=== PATIENT | female | born 1945 | race Hispanic/Latino ===

== ENCOUNTER 2016-12-02 15:35 | Inpatient (IN) | payer MEDICARE, OTHER ==
[2016-12-02] MEDS ORDERED: Digoxin 500 mcg/2ml (0.5 mg/2ml) Inj ONE ×2 (16:03→22:17)
[2016-12-02] MEDS ORDERED: Sodium Chloride 0.9% 1,000 ML IV ONE ×4 (16:10→21:33)
[2016-12-02] MEDS ORDERED: Digoxin 500 mcg/2ml (0.5 mg/2ml) Inj IVP ONE ×2 (16:12→21:26)
[2016-12-02] MEDS ORDERED: Sodium Chloride 0.9% 1,000 ML ONE (16:21)
[2016-12-02 16:44] LABS: VENOUS BLOOD GAS BASE EXCESS 5.4 mmol/L (0.0-2.0); VENOUS BLOOD GAS PCO2 42 mmHg (40-60); VENOUS BLOOD PH 7.46 (7.32-7.43)
[2016-12-02 16:55] LABS: LYMPH # 0.1 K/uL (1.0-4.3); MEAN CELL VOLUME 91.1 fL (81.0-99.0); MEAN CORPUSCULAR HEMOGLOBIN 31.1 pg (27.0-31.0); MEAN CORPUSCULAR HGB CONC 34.1 g/dL (33.0-37.0); NRBC % 3.2 % (0.0-2.0)
[2016-12-02 17:02] LABS: RBC URINE < 1 /hpf (0-3); TRANSITIONAL EPITHIAL < 1 /hpf (0-3); URINE BACTERIA RARE (<OCC); URINE BILIRUBIN NEGATIVE (NEGATIVE); URINE BLOOD NEGATIVE (NEGATIVE); URINE COLOR Amber (YELLOW); URINE GLUCOSE (UA) NORMAL (Normal); URINE KETONE TRACE mg/dL (NEGATIVE); URINE LEUKOCYTE ESTERASE NEG Leu/uL (Negative); URINE PROTEIN NEGATIVE (NEGATIVE); URINE UROBILINOGEN NORMAL mg/dL (0.2-1.0); WBC URINE 1 /hpf (0-5)
[2016-12-02 17:02] LABS: POTASSIUM 4.4 mmol/L (3.6-5.2)
[2016-12-02 17:04] LABS: ALB/GLOB RATIO 1.6 (1.0-2.1); BILIRUBIN,TOTAL 1.3 mg/dL (0.2-1.3); TOTAL PROTEIN 5.4 g/dL (6.3-8.3)
[2016-12-02 17:04] LABS: HEMATOCRIT 35.1 % (34.0-47.0)
[2016-12-02 17:05] LABS: CALCIUM 9.2 mg/dl (8.6-10.4)
[2016-12-02 17:05] LABS: BASO % 0.2 % (0.0-2.0); EOS % 0.3 % (0.0-4.0); LYMPH % 10.3 % (20.0-40.0); MEAN PLATELET VOLUME 7.2 fL (7.2-11.7); MONO % 1.7 % (0.0-10.0); PLATELET COUNT 126 K/uL (130-400); RED CELL DISTRIBUTION WIDTH 16.7 % (11.5-14.5)
[2016-12-02 17:06] LABS: INR 1.4
[2016-12-02 17:23] LABS: TROPONIN I 0.143 ng/mL (0.00-0.120)
--- NOTE | 2016-12-02 17:34 | CT ---
PROCEDURE: CT HEAD WITHOUT CONTRAST. HISTORY: MS change, h/o brain CA and surg, ? infect COMPARISON: None available. TECHNIQUE: Axial computed tomography images were obtained through the head/brain without intravenous contrast. Radiation dose: Total exam DLP = 982.82 mGy-cm. This CT exam was performed using one or more of the following dose reduction techniques: Automated exposure control, adjustment of the mA and/or kV according to patient size, and/or use of iterative reconstruction technique. FINDINGS: HEMORRHAGE: There is Iso to slightly hypointense small fluid collection along the left brain convexity with maximal thickness of 3.7 millimeter may represent old subdural hematoma or posttraumatic hygroma. No evidence of acute intracranial hemorrhage. BRAIN: No mass effect or edema. No atrophy or chronic microvascular ischemic changes. VENTRICLES: Unremarkable. No hydrocephalus. CALVARIUM: The patient status post left suboccipital craniectomy and cranioplasty. Focal mild soft tissue swelling seen adjacent and posterior to the left mastoid. PARANASAL SINUSES: Unremarkable as visualized. No significant inflammatory changes. MASTOID AIR CELLS: There is partial opacification of the left mastoid and left middle ear suggestive of otomastoiditis OTHER FINDINGS: None. IMPRESSION: Suspicious for small Iso to hypointense fluid collection along the left brain convexity with maximum thickness of 3.7 millimeter may represent old subdural hematoma or posttraumatic hygroma. No evidence of acute intracranial hemorrhage. Partial to complete opacification of the left mastoid and middle ear suggestive of otomastoiditis. Status post left suboccipital craniectomy. No evidence of mass lesion mass effect or midline shift in this study.
--- NOTE | 2016-12-02 17:42 | C.PDOC ---
History Of Present Illness 71 y/o female is brought to ED by family from home for evaluation of confusion and delirious x 2 days. Family @ bedside provide HPI. 09/23: Pt with dizziness, L eye vision changes, L hearing deficits and falls noticed 09/23 Tumor L brain stem area noted 11/11/16: L posterior Auricular approach by NSGY for removal of solitary brain lesion, metastatic breast CA, Onc Dr. Moore (sp?) @ [facility] pt had residual Left III, IV, nerve palsy for which pt is following up with Neurology since 02/23 (Unknown Neurologist) Discharged to [facility] staying approx 17 days and discharged yesterday (12/01/16) to go home to stay with her equally infirm who cannot take care of her. No SINGLE STAYER OPERATOR assiged to her home care. Black hairy tongue noticed 2 days ago. Has refused to stay with sons/daughters to care for her. She admits to poor PO intake and has been smoking cigarettes enthusiastically since yesterday. Left [facility] but had fevers to 101^F for past 2 day and prior to discharge, no ABX started. Code status d/w family @ bedside, oldest daughter is healthcare proxy, persists Full Code, no DNR in place Soon after arrival Pt was found to be in A-fib at the rate of 150-180 in the ER. HPI: 03/2013: b/l mastectomy for ? L breast CA and L chest radiation, complicated by L rib mets/fx. Has been relatively well until 03/26: Last Chemotherapy Mar 2016 on hold due to significant weight loss No h/o neutropenic fevers Time Seen by Provider: 12/02/16 16:08 Chief Complaint (Nursing): Altered Mental Status History Per: EMS, Family History/Exam Limitations: None Onset/Duration Of Symptoms: Hrs Current Symptoms Are (Timing): Still Present Recent travel outside of the [place]: No Additional History Per: Patient Associated Symptoms: Confused. denies: Vomiting, Diarrhea Past Medical History Reviewed: Historical Data, Nursing Documentation, Vital Signs Vital Signs: Last Vital Signs Temp 100 F H 12/02/16 21:33 Pulse 97 H 12/02/16 22:22 Resp 21 12/02/16 22:22 BP 97/46 L 12/02/16 22:22 Pulse Ox 95 12/03/16 01:22 Family History: States: Unknown Family Hx - Social History Hx Alcohol Use: No Hx Substance Use: No - Immunization History Hx Tetanus Toxoid Vaccination: No Hx Influenza Vaccination: No Hx Pneumococcal Vaccination: Yes Review Of Systems Except As Marked, All Systems Reviewed And Found Negative. Constitutional: Positive for: Other (persistent unintentional weight loss). Negative for: Fever, Chills Cardiovascular: Negative for: Chest Pain, Palpitations Respiratory: Negative for: Shortness of Breath Gastrointestinal: Negative for: Nausea, Vomiting, Abdominal Pain Neurological: Positive for: Confusion. Negative for: Dizziness Physical Exam - Physical Exam Appears: Non-toxic, No Acute Distress, Other (delirious, strong cigarette odor) Skin: Normal Color, Warm, Dry, No Rash, Other (L posterior auricaular area with healed surgical incision and remnants of absorbable sutures in the area, no surrounding erythema/d/c) Head: Atraumatic, Normacephalic Eye(s): bilateral: PERRL ((-)chelo shanel pupil), EOMI, left: Other (cannot look down from left eye) Oral Mucosa: Moist Tongue: Other (black hairy tongue) Neck: Normal ROM, Supple Chest: Symmetrical, No Tenderness Cardiovascular: Rhythm Regular, No Murmur Respiratory: Normal Breath Sounds, No Rales, No Rhonchi, No Wheezing Gastrointestinal/Abdominal: Soft, No Tenderness Extremity: Normal ROM, No Pedal Edema Extremity: Bilateral: Atraumatic Neurological/Psych: Oriented x3 ED Course And Treatment - Laboratory Results Result Diagrams: 12/02/16 17:00 12/02/16 16:40 Lab Interpretation: Abnormal (UA neg. trop 0.143) ECG: Interpreted By Wy ECG Rhythm: Sinus Rhythm ECG Interpretation: Abnormal Rate From EC (repeat EKG AF @ 181) O2 Sat by Pulse Oximetry: 95 (RA) Pulse Ox Interpretation: Normal - Radiology CXR: Interpreted by Wy CXR Interpretation: Yes: Other (? infiltrate vs radiation fibrosis L chest area) Progress Note: Blood work, UA, CXR, EKG, head CT ordered and reviewed. Patient was given Vancomycin, Tylenol, Lanoxin, Gentamicin, Ampicillin. Reevaluation Time: 21:32 Reassessment Condition: Improved - Physician Consult Information Outcome Of Conversation: d/w Dr. Jose Roberto SAAVEDRA Director [employer] @ 1930, recommends transfer back to care of Dr. Mercedez LORENZO @ [facility]. 1999: d/w Dr. Urena - Pt's Oncology @ [place], ok to accept in Transfer. 1999--> multipole calls to transfer pt to [facility] without success. d/w Noman- in Admitting/ Bed Control. pt information to be presented to Utilization Review Associate Professor Of Literacy approx 9AM 12/03 and will be evaluated for accept of transfer at that time. 0100: d/w Dr. Sanchez- covering ICU, ok to ICU Critical Care Time - Critical Care Note Total Time (in mins): 120 Documented critical care: time excludes all time spent performing seperately billable procedures. Medical Decision Making Medical Decision Making: Metastatic L breast CA with L brain lesion now s/p NSGY 11/11/16 with residual L eye CN III, IV, palsy Neutropenic Fevers and new Rapid AF with WBC 1.0, N 87%, empirically covered with Amp, Gent, Vanco, no obvious source at this time, but high suspicion of post-surgical NSGY wound may harbor infection considering pt's diminishing Neuro Status. Curious why pt neutropenic if no Chemotherapy since 03/26? Consider Meningitis- recent NSGY and small fluid collection @ L inferior brain surgery site. May explain some of pt's declining mental status. empiric coverage started. LP deferred for pt with no meningsmus, nuchal rigitidy, nor photophobia New onset AF- dig Loaded 0.5 mg IV, and 2nd dose dig 0.25 given @ 2200 hrs. continue to load 3rd dose 0.25 overnight and then maintenence doses daily. Check levels as appropriate NSTEMI- Trop 0.143, prob related to OSBALDO and strain, normal EKG on arrival and OSBALDO @ 181 in ED. Could be related to PE though CTA cannot be performed due to acute renal insuff creat 2.23. Defer anticoagulation due to recent neurosurgery 11/11/16 approx 3 weeks ago where risks of brain bleed outweigh low susp of PE in this pt with initially NSR 80's and no leg edema/swelling. pt received radiation to L chest area breast and/or L rib area, consider radiation related cardiomyopathies. Dehydration- creat 2.2, was normal during admission this month @ [facility]. Pt eating poorly and not drinking fluids but no dysphagia/odynophagia. Agressive hydration started. Hairy Black Tongue - still smoking, poorly kempt, asymptomatic. Consider hygiene. Code Status: Full Code, oldest daughter (not present today) is Healthcare Proxy. Extensive d/w family @ bedside to continue present care and consider DNR status and Hospice care considering advanced diseases and potentially poor prognosis Disposition Doctor Will See Patient In The: Hospital Counseled Patient/Family Regarding: Studies Performed, Diagnosis - Disposition Disposition: HOSPITALIZED Disposition Time: 01:00 Condition: GOOD Forms: uMentioned (Amharic) - Clinical Impression Clinical Impression: Dehydration, Acute renal insufficiency, NSTEMI (non-ST elevated myocardial infarction), Rapid atrial fibrillation, Brain surgery within last 3 months, Breast cancer metastasized to bone - Scribe Statement The provider has reviewed the documentation as recorded by the Scribjaime Frederick All medical record entries made by the Kathiibjaime were at my direction and personally dictated by me. I have reviewed the chart and agree that the record accurately reflects my personal performance of the history, physical exam, medical decision making, and the department course for this patient. I have also personally directed, reviewed, and agree with the discharge instructions and disposition.
[2016-12-02] MEDS ORDERED: Vancomycin 1 GM 1 GM/250 ML BAG IV ONE (17:45)
[2016-12-02] MEDS ORDERED: AMPicillin 1 GM in Sodium Chloride 0.9% 100 ML IVPB STA (17:48)
[2016-12-02 17:51] LABS: METAMYELOCYTE 1 % (0-0); MYELOCYTE 1 % (0-0); NEUTROPHIL 54 % (50-75); NUCLEATED RED BLOOD CELL 6 % (0-0); TOTAL CELLS COUNTED 100
--- NOTE | 2016-12-02 18:06 | RAD ---
HISTORY: adm COMPARISON: None available. TECHNIQUE: Chest, one view. FINDINGS: Right-sided MediPort extends to the expected location of the SVC. LUNGS: Patchy bilateral airspace opacities with the left mid to lower lobe predominance. Please note that chest x-ray has limited sensitivity for the detection of pulmonary masses. PLEURA: No significant pleural effusion identified. No definite pneumothorax . CARDIOVASCULAR: Heart size appears top normal. Atherosclerotic calcifications the aorta. OSSEOUS STRUCTURES: Osseous demineralization. Degenerative changes. VISUALIZED UPPER ABDOMEN: Mild elevation of the right hemidiaphragm. OTHER FINDINGS: None. IMPRESSION: Right-sided MediPort. Patchy bilateral airspace opacities with left mid to lower lobe predominance. Correlate clinically for infectious etiologies. Recommend follow-up to complete resolution.
[2016-12-02] MEDS ORDERED: Sodium Chloride 0.9% 1,000 ML IV STA (18:58)
[2016-12-02] MEDS ORDERED: Vancomycin 1 gm/NS 200 ml 1 GM/200 ML BAG IVPB ONE (20:00)
[2016-12-02 22:22] VITALS: PULSE 105
--- NOTE | 2016-12-03 02:02 | CP.PCM.HP ---
<Dory Schreiber - Last Filed: 12/03/16 03:37> History of Present Illness - History of Present Illness History of Present Illness: HPI: 71 year old female with PMHx of metastatic breast cancer, COPD, and s/p neurosurgery to remove brain tumor, presents to the ED with altered mental status as per H&P provided by ER physician. Upon examination, patient's only complain is lower back pain due to laying down all day. Patient was unaware why she was brought to the ED. When asked, patient stated she had shortness of breath but states she has COPD and this is not new. Patient denies chest pain, nausea, or vomiting. A complete review of systems could not be completed due to patients change in mental status. 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 Other information unobtainable. Present on Admission - Present on Admission Any Indicators Present on Admission: No Review of Systems - Review of Systems Systems not reviewed;Unavailable: Altered Mental Status - Cardiovascular Cardiovascular: absent: Chest Pain - Gastrointestinal Gastrointestinal: absent: Nausea, Vomiting Past Patient History - Past Social History Smoking Status: Former Smoker - NEUROLOGICAL Other/Comment: brain tumor - HEMATOLOGICAL/ONCOLOGICAL Hx Cancer: Yes (breast) - PSYCHIATRIC Hx Substance Use: No - SURGICAL HISTORY Other/Comment: brain surgery Meds Allergies/Adverse Reactions: Allergies Allergy/AdvReac Type Severity Reaction Status Date / Time No Known Allergies Allergy Verified 12/02/16 15:40 Physical Exam - Constitutional Appears: Cachectic, Chronically Ill - Head Exam Head Exam: ATRAUMATIC, NORMAL INSPECTION, NORMOCEPHALIC - Eye Exam Additional comments: Patient did not have left lateral and left superior movement of the left eye - ENT Exam ENT Exam: Mucous Membranes Dry - Respiratory Exam Respiratory Exam: Clear to Auscultation Bilateral, NORMAL BREATHING PATTERN - Cardiovascular Exam Cardiovascular Exam: REGULAR RHYTHM, +S1, +S2. absent: JVD - GI/Abdominal Exam GI & Abdominal Exam: Normal Bowel Sounds, Soft. absent: Tenderness - Extremities Exam Extremities exam: Positive for: normal inspection. Negative for: pedal edema, tenderness - Neurological Exam Neurological exam: Alert Additional comments: Patient stated she knew she was in the hospital but when asked where she came from she said she came from home with her . - Psychiatric Exam Psychiatric exam: Normal Affect, Normal Mood - Skin Skin Exam: Normal Color, Warm Results - Vital Signs Recent Vital Signs: Last Vital Signs Temp 100 F H 12/02/16 21:33 Pulse 97 H 12/02/16 22:22 Resp 21 12/02/16 22:22 BP 97/46 L 12/02/16 22:22 Pulse Ox 95 12/03/16 01:59 - Labs Result Diagrams: 12/02/16 17:00 12/02/16 16:40 Labs: Laboratory Results - last 24 hr 12/02/16 12/02/16 12/02/16 15:39 16:08 16:15 WBC RBC Hgb Hct MCV MCH MCHC RDW Plt Count MPV Neut % (Auto) Lymph % (Auto) [place] % (Auto) Eos % (Auto) Baso % (Auto) Neut # Lymph # [place] # Eos # Baso # Neutrophils % (Manual) Band Neutrophils % Lymphocytes % (Manual) Monocytes % (Manual) Metamyelocytes % Myelocytes % Nucleated RBC % Toxic Granulation Dohle Bodies Platelet Estimate Anisocytosis (manual) PT INR APTT pO2 VBG pH VBG pCO2 VBG HCO3 VBG Total CO2 VBG Base Excess VBG Potassium Sodium Chloride Glucose Lactate Potassium Carbon Dioxide Anion Gap BUN Creatinine Est GFR ( Amer) Est GFR (Non-Af Amer) POC Glucose (mg/dL) 80 Random Glucose Hemoglobin A1c 6.8 H Calcium Total Bilirubin AST ALT Alkaline Phosphatase Troponin I Total Protein Albumin Globulin Albumin/Globulin Ratio Triglycerides Cholesterol LDL Cholesterol Direct HDL Cholesterol Venous Blood Potassium Urine Color Urine Clarity Urine pH Ur Specific [place] Urine Protein Urine Glucose (UA) Urine Ketones Urine Blood Urine Nitrate Urine Bilirubin Urine Urobilinogen Ur Leukocyte Esterase Urine WBC (Auto) Urine RBC (Auto) Ur Transition Epith Cell Urine Bacteria Hyaline Casts Blood Type B POSITIVE Antibody Screen Positive Antibody Identification Anti Jka 12/02/16 12/02/16 12/02/16 16:40 16:40 16:50 WBC RBC Hgb Hct MCV MCH MCHC RDW Plt Count MPV Neut % (Auto) Lymph % (Auto) [place] % (Auto) Eos % (Auto) Baso % (Auto) Neut # Lymph # [place] # Eos # Baso # Neutrophils % (Manual) Band Neutrophils % Lymphocytes % (Manual) Monocytes % (Manual) Metamyelocytes % Myelocytes % Nucleated RBC % Toxic Granulation Dohle Bodies Platelet Estimate Anisocytosis (manual) PT INR APTT pO2 35 VBG pH 7.46 H VBG pCO2 42 VBG HCO3 28.4 VBG Total CO2 31.2 H VBG Base Excess 5.4 H VBG Potassium 5.1 Sodium 130 L 135.0 Chloride 87 L 90.0 L Glucose 77 Lactate 1.9 Potassium 4.4 Carbon Dioxide 28 Anion Gap 19 BUN 73 H Creatinine 2.3 H Est GFR ( Amer) 25 Est GFR (Non-Af Amer) 21 POC Glucose (mg/dL) Random Glucose 67 Hemoglobin A1c Calcium 9.2 Total Bilirubin 1.3 AST 18 ALT 27 Alkaline Phosphatase 95 Troponin I 0.1430 H* Total Protein 5.4 L Albumin 3.3 L Globulin 2.1 L Albumin/Globulin Ratio 1.6 Triglycerides 188 H Cholesterol 152 LDL Cholesterol Direct 61 HDL Cholesterol 30 Venous Blood Potassium 5.1 Urine Color Erin Urine Clarity Hazy Urine pH 5.0 Ur Specific [place] 1.019 Urine Protein Negative Urine Glucose (UA) Normal Urine Ketones Trace Urine Blood Negative Urine Nitrate Negative Urine Bilirubin Negative Urine Urobilinogen Normal Ur Leukocyte Esterase Neg Urine WBC (Auto) 1 Urine RBC (Auto) < 1 Ur Transition Epith Cell < 1 Urine Bacteria Rare Hyaline Casts 3-5 H Blood Type Antibody Screen Antibody Identification 12/02/16 12/02/16 17:00 17:00 WBC 1.0 L* RBC 3.86 Hgb 12.0 Hct 35.1 MCV 91.1 MCH 31.1 H MCHC 34.1 RDW 16.7 H Plt Count 126 L MPV 7.2 Neut % (Auto) 87.5 H Lymph % (Auto) 10.3 L [place] % (Auto) 1.7 Eos % (Auto) 0.3 Baso % (Auto) 0.2 Neut # 0.9 L Lymph # 0.1 L [place] # 0.0 Eos # 0.0 Baso # 0.0 Neutrophils % (Manual) 54 Band Neutrophils % 28 H* Lymphocytes % (Manual) 9 L Monocytes % (Manual) 7 Metamyelocytes % 1 H Myelocytes % 1 H Nucleated RBC % 6 H Toxic Granulation Present Dohle Bodies Present Platelet Estimate Slightly decreased L Anisocytosis (manual) Slight PT 15.8 H INR 1.4 APTT 48 H pO2 VBG pH VBG pCO2 VBG HCO3 VBG Total CO2 VBG Base Excess VBG Potassium Sodium Chloride Glucose Lactate Potassium Carbon Dioxide Anion Gap BUN Creatinine Est GFR ( Amer) Est GFR (Non-Af Amer) POC Glucose (mg/dL) Random Glucose Hemoglobin A1c Calcium Total Bilirubin AST ALT Alkaline Phosphatase Troponin I Total Protein Albumin Globulin Albumin/Globulin Ratio Triglycerides Cholesterol LDL Cholesterol Direct HDL Cholesterol Venous Blood Potassium Urine Color Urine Clarity Urine pH Ur Specific [place] Urine Protein Urine Glucose (UA) Urine Ketones Urine Blood Urine Nitrate Urine Bilirubin Urine Urobilinogen Ur Leukocyte Esterase Urine WBC (Auto) Urine RBC (Auto) Ur Transition Epith Cell Urine Bacteria Hyaline Casts Blood Type Antibody Screen Antibody Identification Assessment & Plan - Assessment and Plan (Free Text) Assessment: 1.) Change in mental status possibly secondary to Neutropenic fever - WBC on admission (12/02): 1.0 - Meropenem [id number], - vanco dose dependent on levels - Monitor - Head CT: Suspicious for small Iso to hypointense fluid collection along the left brain convexity with maximum thickness of 3.7 millimeter may represent old subdural hematoma or posttraumatic hygroma. No evidence of acute intracranial hemorrhage. Partial to complete opacification of the left mastoid and middle ear suggestive of otomastoiditis. Status post left suboccipital craniectomy. No evidence of mass lesion mass effect or midline shift in this study. 2.) Clinical dehydration - n/s was given in the ED 3.) TERESA - BUN/Cr: 73/2.3 4.) Tachycardia likely sinus with pac with hr in 180's - f/u ECHO - f/u venous doppler 5.) History of Brain Tumor: - Head CT: Suspicious for small Iso to hypointense fluid collection along the left brain convexity with maximum thickness of 3.7 millimeter may represent old subdural hematoma or posttraumatic hygroma. No evidence of acute intracranial hemorrhage. Partial to complete opacification of the left mastoid and middle ear suggestive of otomastoiditis. Status post left suboccipital craniectomy. No evidence of mass lesion mass effect or midline shift in this study. - Continue home dose of decadron 5.) Prophylaxis - Heparin SC - Protonix - Disposition: Possible transfer to [facility] in morning <Cuauhtemoc Colin - Last Filed: 12/03/16 04:24> Results - Vital Signs Recent Vital Signs: Last Vital Signs Temp 101.2 F H 12/03/16 04:15 Pulse 139 H 12/03/16 04:10 Resp 22 12/03/16 04:10 BP 105/38 L 12/03/16 03:53 Pulse Ox 96 12/03/16 04:10 - Labs Result Diagrams: 12/02/16 17:00 12/02/16 16:40 Labs: Laboratory Results - last 24 hr 12/02/16 12/02/16 12/02/16 15:39 16:08 16:15 WBC RBC Hgb Hct MCV MCH MCHC RDW Plt Count MPV Neut % (Auto) Lymph % (Auto) [place] % (Auto) Eos % (Auto) Baso % (Auto) Neut # Lymph # [place] # Eos # Baso # Neutrophils % (Manual) Band Neutrophils % Lymphocytes % (Manual) Monocytes % (Manual) Metamyelocytes % Myelocytes % Nucleated RBC % Toxic Granulation Dohle Bodies Platelet Estimate Anisocytosis (manual) PT INR APTT pO2 VBG pH VBG pCO2 VBG HCO3 VBG Total CO2 VBG Base Excess VBG Potassium Sodium Chloride Glucose Lactate Potassium Carbon Dioxide Anion Gap BUN Creatinine Est GFR ( Amer) Est GFR (Non-Af Amer) POC Glucose (mg/dL) 80 Random Glucose Hemoglobin A1c 6.8 H Calcium Total Bilirubin AST ALT Alkaline Phosphatase Troponin I Total Protein Albumin Globulin Albumin/Globulin Ratio Triglycerides Cholesterol LDL Cholesterol Direct HDL Cholesterol Venous Blood Potassium Urine Color Urine Clarity Urine pH Ur Specific [place] Urine Protein Urine Glucose (UA) Urine Ketones Urine Blood Urine Nitrate Urine Bilirubin Urine Urobilinogen Ur Leukocyte Esterase Urine WBC (Auto) Urine RBC (Auto) Ur Transition Epith Cell Urine Bacteria Hyaline Casts Blood Type B POSITIVE Antibody Screen Positive Antibody Identification Anti Jka 12/02/16 12/02/16 12/02/16 16:40 16:40 16:50 WBC RBC Hgb Hct MCV MCH MCHC RDW Plt Count MPV Neut % (Auto) Lymph % (Auto) [place] % (Auto) Eos % (Auto) Baso % (Auto) Neut # Lymph # [place] # Eos # Baso # Neutrophils % (Manual) Band Neutrophils % Lymphocytes % (Manual) Monocytes % (Manual) Metamyelocytes % Myelocytes % Nucleated RBC % Toxic Granulation Dohle Bodies Platelet Estimate Anisocytosis (manual) PT INR APTT pO2 35 VBG pH 7.46 H VBG pCO2 42 VBG HCO3 28.4 VBG Total CO2 31.2 H VBG Base Excess 5.4 H VBG Potassium 5.1 Sodium 130 L 135.0 Chloride 87 L 90.0 L Glucose 77 Lactate 1.9 Potassium 4.4 Carbon Dioxide 28 Anion Gap 19 BUN 73 H Creatinine 2.3 H Est GFR ( Amer) 25 Est GFR (Non-Af Amer) 21 POC Glucose (mg/dL) Random Glucose 67 Hemoglobin A1c Calcium 9.2 Total Bilirubin 1.3 AST 18 ALT 27 Alkaline Phosphatase 95 Troponin I 0.1430 H* Total Protein 5.4 L Albumin 3.3 L Globulin 2.1 L Albumin/Globulin Ratio 1.6 Triglycerides 188 H Cholesterol 152 LDL Cholesterol Direct 61 HDL Cholesterol 30 Venous Blood Potassium 5.1 Urine Color Erin Urine Clarity Hazy Urine pH 5.0 Ur Specific [place] 1.019 Urine Protein Negative Urine Glucose (UA) Normal Urine Ketones Trace Urine Blood Negative Urine Nitrate Negative Urine Bilirubin Negative Urine Urobilinogen Normal Ur Leukocyte Esterase Neg Urine WBC (Auto) 1 Urine RBC (Auto) < 1 Ur Transition Epith Cell < 1 Urine Bacteria Rare Hyaline Casts 3-5 H Blood Type Antibody Screen Antibody Identification 12/02/16 12/02/16 17:00 17:00 WBC 1.0 L* RBC 3.86 Hgb 12.0 Hct 35.1 MCV 91.1 MCH 31.1 H MCHC 34.1 RDW 16.7 H Plt Count 126 L MPV 7.2 Neut % (Auto) 87.5 H Lymph % (Auto) 10.3 L [place] % (Auto) 1.7 Eos % (Auto) 0.3 Baso % (Auto) 0.2 Neut # 0.9 L Lymph # 0.1 L [place] # 0.0 Eos # 0.0 Baso # 0.0 Neutrophils % (Manual) 54 Band Neutrophils % 28 H* Lymphocytes % (Manual) 9 L Monocytes % (Manual) 7 Metamyelocytes % 1 H Myelocytes % 1 H Nucleated RBC % 6 H Toxic Granulation Present Dohle Bodies Present Platelet Estimate Slightly decreased L Anisocytosis (manual) Slight PT 15.8 H INR 1.4 APTT 48 H pO2 VBG pH VBG pCO2 VBG HCO3 VBG Total CO2 VBG Base Excess VBG Potassium Sodium Chloride Glucose Lactate Potassium Carbon Dioxide Anion Gap BUN Creatinine Est GFR ( Amer) Est GFR (Non-Af Amer) POC Glucose (mg/dL) Random Glucose Hemoglobin A1c Calcium Total Bilirubin AST ALT Alkaline Phosphatase Troponin I Total Protein Albumin Globulin Albumin/Globulin Ratio Triglycerides Cholesterol LDL Cholesterol Direct HDL Cholesterol Venous Blood Potassium Urine Color Urine Clarity Urine pH Ur Specific [place] Urine Protein Urine Glucose (UA) Urine Ketones Urine Blood Urine Nitrate Urine Bilirubin Urine Urobilinogen Ur Leukocyte Esterase Urine WBC (Auto) Urine RBC (Auto) Ur Transition Epith Cell Urine Bacteria Hyaline Casts Blood Type Antibody Screen Antibody Identification Assessment & Plan - Date & Time Date: 12/03/16 (I have seen and examined the patient. I agree with the findings and plan of care as documented by Dr. Schreiber. Patient with acute change in mental status. CT positive for hypo dense fluid collection. History of brain tumor. Neutropenic fever. Antibiotics started in ED. Reverse isolation. Also with acute kidney injury. IVF for now. Recheck with labs in AM. Admit to ICU for close monitoring. Monitor for acute changes.) Time: 04:22 Attending/Attestation - Attestation I have personally seen and examined this patient.: Yes I have fully participated in the care of the patient.: Yes I have reviewed all pertinent clinical information: Yes
--- NOTE | 2016-12-03 02:52 | CP.PCM.CON ---
History of Present Illness - History of Present Illness History of Present Illness: 71 F with h/o breast cancer s/p surg b/l mastectomy in 2013, h/o uterine cancer s/p hysterectomy, h/o recurrence of breast cancer with mets to head with and surgical removal of tumor in the base of the skull on the left side with affection of LR and SO nerve supply early this November, patient's Neurosugeon Dr. Panchal in [facility] and Oncologist Dr Urena in [facility]. Patient was in rehab untill 2 days back but then discharged home and had fever for 2 days. Patient in ER found to be neutropenic, high fever, absolute neutropenia of 900, creat 2.3, HR in 180's with PAC vs afib, hypotension. Patient in ER given gentamycin, vancomycin, ampicillin, CT brain in ER showed small amount of fluid on the left side. Patient needed about 4 lit of fluid in ER, dig was also given. From ER request was made to transfer patient to [facility] but could not be transferred in the night due to administrative issue at [facility], patient was hence being observed in here in ICU. PMH as above ROS patient has poor intake, currently alert and oriented, uses walker, not eating well due to nausea Review of Systems - Review of Systems All systems: reviewed and no additional remarkable complaints except (HPI) Past Patient History - Past Social History Smoking Status: Former Smoker Alcohol: None Drugs: Denies Home Situation {Lives}: With Family - NEUROLOGICAL Other/Comment: brain tumor - HEMATOLOGICAL/ONCOLOGICAL Hx Cancer: Yes (breast) - PSYCHIATRIC Hx Substance Use: No - SURGICAL HISTORY Other/Comment: brain surgery Meds Allergies/Adverse Reactions: Allergies Allergy/AdvReac Type Severity Reaction Status Date / Time No Known Allergies Allergy Verified 12/02/16 15:40 - Medications Medications: Current Medications Dexamethasone (Decadron) 2 mg PO Q12 SEVERINO Diltiazem HCl (Cardizem) 180 mg PO ONCE SEVERINO Gabapentin (Neurontin) 300 mg PO TID SEVERINO Heparin Sodium (Porcine) (Heparin) 5,000 units SC Q8 SEVERINO Pantoprazole Sodium (Protonix Inj) 40 mg IVP DAILY SEVERINO Fluticasone/Salmeterol (Advair Diskus 250/50) 1 puff INH RQ12 SEVERINO Physical Exam - Additional Findings Additional findings: * HEENT, no left lateral and left superior movement of the left eye, oral mucosa very dry, scar noticed behind left ear * Neck no jvd * chest Clear * CVS regular now, narrow complex not * PA soft, reduced bs, NT * Ext no edema, reduced turgor * CHS essential tremors, alert oriented x3, moving all 4 ext, no gross sensory defict * Skin dry Results - Vital Signs Recent Vital Signs: Last Vital Signs Temp 100 F H 12/02/16 21:33 Pulse 97 H 12/02/16 22:22 Resp 21 12/02/16 22:22 BP 97/46 L 12/02/16 22:22 Pulse Ox 95 12/03/16 02:03 - Labs Result Diagrams: 12/02/16 17:00 12/02/16 16:40 Labs: Laboratory Results - last 24 hr 12/02/16 12/02/16 12/02/16 15:39 16:08 16:15 WBC RBC Hgb Hct MCV MCH MCHC RDW Plt Count MPV Neut % (Auto) Lymph % (Auto) [place] % (Auto) Eos % (Auto) Baso % (Auto) Neut # Lymph # [place] # Eos # Baso # Neutrophils % (Manual) Band Neutrophils % Lymphocytes % (Manual) Monocytes % (Manual) Metamyelocytes % Myelocytes % Nucleated RBC % Toxic Granulation Dohle Bodies Platelet Estimate Anisocytosis (manual) PT INR APTT pO2 VBG pH VBG pCO2 VBG HCO3 VBG Total CO2 VBG Base Excess VBG Potassium Sodium Chloride Glucose Lactate Potassium Carbon Dioxide Anion Gap BUN Creatinine Est GFR ( Amer) Est GFR (Non-Af Amer) POC Glucose (mg/dL) 80 Random Glucose Hemoglobin A1c 6.8 H Calcium Total Bilirubin AST ALT Alkaline Phosphatase Troponin I Total Protein Albumin Globulin Albumin/Globulin Ratio Triglycerides Cholesterol LDL Cholesterol Direct HDL Cholesterol Venous Blood Potassium Urine Color Urine Clarity Urine pH Ur Specific [place] Urine Protein Urine Glucose (UA) Urine Ketones Urine Blood Urine Nitrate Urine Bilirubin Urine Urobilinogen Ur Leukocyte Esterase Urine WBC (Auto) Urine RBC (Auto) Ur Transition Epith Cell Urine Bacteria Hyaline Casts Blood Type B POSITIVE Antibody Screen Positive Antibody Identification Anti Jka 12/02/16 12/02/16 12/02/16 16:40 16:40 16:50 WBC RBC Hgb Hct MCV MCH MCHC RDW Plt Count MPV Neut % (Auto) Lymph % (Auto) [place] % (Auto) Eos % (Auto) Baso % (Auto) Neut # Lymph # [place] # Eos # Baso # Neutrophils % (Manual) Band Neutrophils % Lymphocytes % (Manual) Monocytes % (Manual) Metamyelocytes % Myelocytes % Nucleated RBC % Toxic Granulation Dohle Bodies Platelet Estimate Anisocytosis (manual) PT INR APTT pO2 35 VBG pH 7.46 H VBG pCO2 42 VBG HCO3 28.4 VBG Total CO2 31.2 H VBG Base Excess 5.4 H VBG Potassium 5.1 Sodium 130 L 135.0 Chloride 87 L 90.0 L Glucose 77 Lactate 1.9 Potassium 4.4 Carbon Dioxide 28 Anion Gap 19 BUN 73 H Creatinine 2.3 H Est GFR ( Amer) 25 Est GFR (Non-Af Amer) 21 POC Glucose (mg/dL) Random Glucose 67 Hemoglobin A1c Calcium 9.2 Total Bilirubin 1.3 AST 18 ALT 27 Alkaline Phosphatase 95 Troponin I 0.1430 H* Total Protein 5.4 L Albumin 3.3 L Globulin 2.1 L Albumin/Globulin Ratio 1.6 Triglycerides 188 H Cholesterol 152 LDL Cholesterol Direct 61 HDL Cholesterol 30 Venous Blood Potassium 5.1 Urine Color Erin Urine Clarity Hazy Urine pH 5.0 Ur Specific [place] 1.019 Urine Protein Negative Urine Glucose (UA) Normal Urine Ketones Trace Urine Blood Negative Urine Nitrate Negative Urine Bilirubin Negative Urine Urobilinogen Normal Ur Leukocyte Esterase Neg Urine WBC (Auto) 1 Urine RBC (Auto) < 1 Ur Transition Epith Cell < 1 Urine Bacteria Rare Hyaline Casts 3-5 H Blood Type Antibody Screen Antibody Identification 12/02/16 12/02/16 17:00 17:00 WBC 1.0 L* RBC 3.86 Hgb 12.0 Hct 35.1 MCV 91.1 MCH 31.1 H MCHC 34.1 RDW 16.7 H Plt Count 126 L MPV 7.2 Neut % (Auto) 87.5 H Lymph % (Auto) 10.3 L [place] % (Auto) 1.7 Eos % (Auto) 0.3 Baso % (Auto) 0.2 Neut # 0.9 L Lymph # 0.1 L [place] # 0.0 Eos # 0.0 Baso # 0.0 Neutrophils % (Manual) 54 Band Neutrophils % 28 H* Lymphocytes % (Manual) 9 L Monocytes % (Manual) 7 Metamyelocytes % 1 H Myelocytes % 1 H Nucleated RBC % 6 H Toxic Granulation Present Dohle Bodies Present Platelet Estimate Slightly decreased L Anisocytosis (manual) Slight PT 15.8 H INR 1.4 APTT 48 H pO2 VBG pH VBG pCO2 VBG HCO3 VBG Total CO2 VBG Base Excess VBG Potassium Sodium Chloride Glucose Lactate Potassium Carbon Dioxide Anion Gap BUN Creatinine Est GFR ( Amer) Est GFR (Non-Af Amer) POC Glucose (mg/dL) Random Glucose Hemoglobin A1c Calcium Total Bilirubin AST ALT Alkaline Phosphatase Troponin I Total Protein Albumin Globulin Albumin/Globulin Ratio Triglycerides Cholesterol LDL Cholesterol Direct HDL Cholesterol Venous Blood Potassium Urine Color Urine Clarity Urine pH Ur Specific [place] Urine Protein Urine Glucose (UA) Urine Ketones Urine Blood Urine Nitrate Urine Bilirubin Urine Urobilinogen Ur Leukocyte Esterase Urine WBC (Auto) Urine RBC (Auto) Ur Transition Epith Cell Urine Bacteria Hyaline Casts Blood Type Antibody Screen Antibody Identification Assessment & Plan - Assessment and Plan (Free Text) Assessment: * Neutropenic fever * Clinical dehydration * TERESA * Tachycardia likely sinus with pac with hr in 180's * Port in right side * recent left side brain surg, with affection of LR and SO, with slight fluid Plan: * Electrolytes * IVF * Meropenem [id number], vanco dose dependent on levels * Continue home dose of decadron, home meds * Chest, abd, pelvis CT * Echo, venous doppler * GI/DVT prophylaxis * Possible transfer to [facility] in am, where patient has neurologist Dr Panchal and Dr Urena have privileges * See orders for detail
[2016-12-03] MEDS ORDERED: Meropenem 500 MG in Dextrose 5% In Water 100 ML IVPB SCH (03:00)
[2016-12-03 05:43] LABS: MAGNESIUM 1.7 mg/dL (1.6-2.3); POTASSIUM 3.7 mmol/L (3.6-5.2)
[2016-12-03 05:44] LABS: ALB/GLOB RATIO 0.9 (1.0-2.1); BILIRUBIN,TOTAL 0.7 mg/dL (0.2-1.3); TOTAL PROTEIN 5.3 g/dL (6.3-8.3)
[2016-12-03 06:30] LABS: PHOSPHOROUS 4.8 mg/dL (2.5-4.5)
[2016-12-03 06:33] LABS: BASO % 0.1 % (0.0-2.0); EOS % 0.6 % (0.0-4.0); HEMATOCRIT 29.8 % (34.0-47.0); LYMPH % 6.4 % (20.0-40.0); MEAN CORPUSCULAR HEMOGLOBIN 30.7 pg (27.0-31.0); MEAN CORPUSCULAR HGB CONC 32.6 g/dL (33.0-37.0); MEAN PLATELET VOLUME 6.9 fL (7.2-11.7); MONO % 0.8 % (0.0-10.0); WHITE BLOOD COUNT 0.5 K/uL (4.8-10.8)
[2016-12-03 06:53] VITALS: BP 101/46; PULSE 137; RESP 26; O2SAT 96
[2016-12-03] MEDS ORDERED: Vancomycin 1 gm/NS 200 ml 1 GM/200 ML BAG IVPB SCH (08:00)
[2016-12-03] MEDS ORDERED: Fluticasone-Salmeterol 250-50mcg Diskus INH SCH (08:00)
[2016-12-03] MEDS ORDERED: Sodium Chloride 0.9% 500 ML IV ONE (09:01)
[2016-12-03] MEDS ORDERED: Sodium Chloride 0.9% 1,000 ML IV SCH (09:15)
[2016-12-03] MEDS ORDERED: diltiaZEM 180 mg/24 Hours CD Cap PO SCH (10:00)
[2016-12-03] MEDS ORDERED: Dextrose 5%/0.9% NS 1,000 ML IV ONE (12:13)
[2016-12-03] MEDS ORDERED: Dexmedetomidine Hydrochloride 200 MCG in Sodium Chloride 0.9% 48 ML IV PRN (14:57)
--- NOTE | 2016-12-03 15:19 | CP.CCUPN ---
<Alessandra Alvarez - Last Filed: 12/03/16 15:16> CCU Subjective - Physician Review Subjective (Free Text): Patient seen and examined at bedside. Patient slightly confused. Patient knows she is in a hospital and the vice president quality. Patient says the year it is incorrectly. Full ROS unobtainable. Patient was going to be transferred to [facility] where her oncologist works today, but family decided to make patient DNR, DNI. Everyone in the family is in agreement. CCU Objective - Vital Signs / Intake & Output Vital Signs (Last 4 hours): Vital Signs Temp 12/03/16 12:47 100.6 F H Intake and Output (Last 8hrs): Intake & Output 12/03/16 12/03/16 12/03/16 06:59 14:59 22:59 Intake Total 100 Output Total 75 Balance 25 Weight 112 lb 3.445 oz Intake: Intake, IV Amount 100 Right Distal Port Port-A- 100 Cath Output: Urine 75 Urethral (Dickson) 75 Other: Voiding Method Indwelling Catheter - Physical Exam Head: Positive for: Atraumatic, Normocephalic Mouth: Positive for: Dry Respiratory/Chest: Positive for: Accessory Muscle Use, Decreased Breath Sounds Cardiovascular: Positive for: Normal S1, S2, Tachycardic Abdomen: Positive for: Normal Bowel Sounds. Negative for: Tenderness Lower Extremity: Negative for: Edema Skin: Positive for: Warm, Normal Color Psychiatric: Positive for: Alert. Negative for: Oriented x 3 - Medications Active Medications: Active Medications Generic Name Dose Route Start Last Admin Trade Name Freq PRN Reason Stop Dose Admin Acetaminophen 650 mg 12/03/16 11:53 12/03/16 12:47 Tylenol 650 Mg Supp [place] 650 mg Q6 PRN Administration Fever >100.4 F Dexamethasone 2 mg 12/03/16 10:00 12/03/16 12:33 Decadron PO Not Given Q12 SEVERINO Diltiazem HCl 180 mg 12/03/16 10:00 Cardizem Cd PO ONCE SEVERINO Gabapentin 300 mg 12/03/16 10:00 12/03/16 12:32 Neurontin PO Not Given TID SEVERINO Heparin Sodium (Porcine) 5,000 units 12/03/16 06:00 12/03/16 05:31 Heparin SC 5,000 units Q8 SEVERINO Administration Vancomycin/Sodium Chloride 1 gm in 200 mls @ 133.333 mls/hr 12/03/16 08:00 08:52 Vancomycin 1 Gm/Ns 200 Ml IVPB 12/08/16 08:01 133.333 mls/hr Q24H SEVERINO Administration Meropenem 500 mg/ Sodium 100 mls @ 100 mls/hr 12/03/16 15:00 Chloride IVPB Q12H SEVERINO Dextrose/Sodium Chloride 1,000 mls @ 150 mls/hr 12/03/16 12:13 12/03/16 12:48 Dextrose 5%/0.9% Ns 1000 Ml IV 12/03/16 18:52 150 mls/hr .[id number] ONE Administration Dexmedetomidine HCl 200 mcg/ 50 mls @ 2.54 mls/hr 12/03/16 14:57 Sodium Chloride IV TITR PRN Agitation Protocol 0.2 MCG/KG/HR Pantoprazole Sodium 40 mg 12/03/16 10:00 12/03/16 12:49 Protonix Inj IVP 40 mg DAILY SEVERINO Administration Fluticasone/Salmeterol 1 puff 12/03/16 08:00 Advair Diskus 250/50 INH RQ12 SEVERINO - Patient Studies Lab Studies: Microbiology Studies 12/02/16 15:45 Gram Stain - Final Blood-Venous 12/02/16 16:00 Gram Stain - Final Blood-Venous Lab Studies 12/03/16 12/03/16 12/03/16 Range/Units 14:32 11:54 10:25 WBC (4.8-10.8) K/uL RBC (3.80-5.20) Mil/uL Hgb (11.0-16.0) g/dL Hct (34.0-47.0) % MCV (81.0-99.0) fL MCH (27.0-31.0) pg MCHC (33.0-37.0) g/dL RDW (11.5-14.5) % Plt Count (130-400) K/uL MPV (7.2-11.7) fL Neut % (Auto) (50.0-75.0) % Lymph % (Auto) (20.0-40.0) % Whitley % (Auto) (0.0-10.0) % Eos % (Auto) (0.0-4.0) % Baso % (Auto) (0.0-2.0) % Neut # (1.8-7.0) K/uL Lymph # (1.0-4.3) K/uL Whitley # (0.0-0.8) K/uL Eos # (0.0-0.7) K/uL Baso # (0.0-0.2) K/uL Total Counted Neutrophils % (Manual) (50-75) % Band Neutrophils % (0-2) % Lymphocytes % (Manual) (20-40) % Reactive Lymphs % Monocytes % (Manual) (0-10) % Eosinophils % (Manual) Basophils % (Manual) Metamyelocytes % (0-0) % Myelocytes % (0-0) % Promyelocytes % Blast Cells % Plasma Cell % (Manual) Nucleated RBC % (0-0) % Hypersegmented Polys Smudge Cells Toxic Granulation Dohle Bodies Michael Rods Platelet Estimate (NORMAL) Plt Clumps, EDTA Large Platelets Giant Platelets RBC Morphology Polychromasia Hypochromasia (manual) Poikilocytosis (manual Basophilic Stippling Anisocytosis (manual) Microcytosis (manual) Macrocytosis (manual) Spherocytes Sickle Cells Target Cells Tear Drop Cells Ovalocytes Stomatocytes Helmet Cells [place] Bodies Risa Cells Acanthocytes (Spur) Rouleaux Schistocytes Smear Path Review PT (9.7-12.2) SECONDS INR APTT (21-34) SECONDS pO2 (30-55) mm/Hg VBG pH (7.32-7.43) VBG pCO2 (40-60) mmHg VBG HCO3 mmol/L VBG Total CO2 (22-28) mmol/L VBG Base Excess (0.0-2.0) mmol/L VBG Potassium (3.6-5.2) mmol/L Sodium (132-148) mmol/l Chloride (98-107) mmol/L Glucose (65-105) mg/dl Lactate (0.7-2.1) mmol/L Potassium (3.6-5.2) mmol/L Carbon Dioxide (22-30) mmol/L Anion Gap (10-20) BUN (7-17) mg/dL Creatinine (0.7-1.2) mg/dL Est GFR ( Amer) Est GFR (Non-Af Amer) POC Glucose (mg/dL) 117 H 64 L (65-110) mg/dL Random Glucose (65-105) mg/dL Hemoglobin A1c (4.2-6.5) % Calcium (8.6-10.4) mg/dl Phosphorus (2.5-4.5) mg/dL Magnesium (1.6-2.3) mg/dL Total Bilirubin (0.2-1.3) mg/dL AST (14-36) U/L ALT (9-52) U/L Alkaline Phosphatase (38-126) U/L Total Creatine Kinase 26 L (30-135) U/L CK-MB (Mass) (0.0-3.38) ng/mL Troponin I (0.00-0.120) ng/mL Troponin I, Quant (0.00-0.120) ng/mL Total Protein (6.3-8.3) g/dL Albumin (3.5-5.0) g/dL Globulin (2.2-3.9) gm/dL Albumin/Globulin Ratio (1.0-2.1) Triglycerides (0-149) mg/dL Cholesterol (0-199) mg/dL LDL Cholesterol Direct (0-129) mg/dL HDL Cholesterol (30-70) mg/dL Venous Blood Potassium (3.6-5.2) mmol/L Urine Color (YELLOW) Urine Clarity (Clear) Urine pH (5.0-8.0) Ur Specific [place] (1.003-1.030) Urine Protein (NEGATIVE) mg/dL Urine Glucose (UA) (Normal) mg/dL Urine Ketones (NEGATIVE) mg/dL Urine Blood (NEGATIVE) Urine Nitrate (NEGATIVE) Urine Bilirubin (NEGATIVE) Urine Urobilinogen (0.2-1.0) mg/dL Ur Leukocyte Esterase (Negative) Ana/uL Urine WBC (Auto) (0-5) /hpf Urine RBC (Auto) (0-3) /hpf Ur Transition Epith Cell (0-3) /hpf Urine Bacteria (<OCC) Hyaline Casts (0-2) /lpf Blood Type Antibody Screen Antibody Identification 12/03/16 12/03/16 12/02/16 Range/Units 05:27 02:45 17:00 WBC 0.5 L* (4.8-10.8) K/uL RBC 3.17 L (3.80-5.20) Mil/uL Hgb 9.7 L D (11.0-16.0) g/dL Hct 29.8 L (34.0-47.0) % MCV 94.0 D (81.0-99.0) fL MCH 30.7 (27.0-31.0) pg MCHC 32.6 L (33.0-37.0) g/dL RDW 17.0 H (11.5-14.5) % Plt Count 91 L D (130-400) K/uL MPV 6.9 L (7.2-11.7) fL Neut % (Auto) 92.1 H (50.0-75.0) % Lymph % (Auto) 6.4 L (20.0-40.0) % Whitley % (Auto) 0.8 (0.0-10.0) % Eos % (Auto) 0.6 (0.0-4.0) % Baso % (Auto) 0.1 (0.0-2.0) % Neut # 0.5 L (1.8-7.0) K/uL Lymph # 0.0 L (1.0-4.3) K/uL Whitley # 0.0 (0.0-0.8) K/uL Eos # 0.0 (0.0-0.7) K/uL Baso # 0.0 (0.0-0.2) K/uL Total Counted Cancelled Neutrophils % (Manual) Cancelled (50-75) % Band Neutrophils % Cancelled (0-2) % Lymphocytes % (Manual) Cancelled (20-40) % Reactive Lymphs % Cancelled Monocytes % (Manual) Cancelled (0-10) % Eosinophils % (Manual) Cancelled Basophils % (Manual) Cancelled Metamyelocytes % Cancelled (0-0) % Myelocytes % Cancelled (0-0) % Promyelocytes % Cancelled Blast Cells % Cancelled Plasma Cell % (Manual) Cancelled Nucleated RBC % Cancelled (0-0) % Hypersegmented Polys Cancelled Smudge Cells Cancelled Toxic Granulation Cancelled Dohle Bodies Cancelled Michael Rods Cancelled Platelet Estimate Cancelled (NORMAL) Plt Clumps, EDTA Cancelled Large Platelets Cancelled Giant Platelets Cancelled RBC Morphology Cancelled Polychromasia Cancelled Hypochromasia (manual) Cancelled Poikilocytosis (manual Cancelled Basophilic Stippling Cancelled Anisocytosis (manual) Cancelled Microcytosis (manual) Cancelled Macrocytosis (manual) Cancelled Spherocytes Cancelled Sickle Cells Cancelled Target Cells Cancelled Tear Drop Cells Cancelled Ovalocytes Cancelled Stomatocytes Cancelled Helmet Cells Cancelled [place] Bodies Cancelled [place] Cells Cancelled Acanthocytes (Spur) Cancelled Rouleaux Cancelled Schistocytes Cancelled Smear Path Review PT 15.8 H (9.7-12.2) SECONDS INR 1.4 APTT 48 H (21-34) SECONDS pO2 (30-55) mm/Hg VBG pH (7.32-7.43) VBG pCO2 (40-60) mmHg VBG HCO3 mmol/L VBG Total CO2 (22-28) mmol/L VBG Base Excess (0.0-2.0) mmol/L VBG Potassium (3.6-5.2) mmol/L Sodium 136 (132-148) mmol/l Chloride 107 D (98-107) mmol/L Glucose (65-105) mg/dl Lactate (0.7-2.1) mmol/L Potassium 3.7 (3.6-5.2) mmol/L Carbon Dioxide 21 L (22-30) mmol/L Anion Gap 12 (10-20) BUN 52 H (7-17) mg/dL Creatinine 1.1 (0.7-1.2) mg/dL Est GFR ( Amer) 59 Est GFR (Non-Af Amer) 49 POC Glucose (mg/dL) (65-110) mg/dL Random Glucose 63 L (65-105) mg/dL Hemoglobin A1c (4.2-6.5) % Calcium 8.0 L (8.6-10.4) mg/dl Phosphorus 4.8 H (2.5-4.5) mg/dL Magnesium 1.7 (1.6-2.3) mg/dL Total Bilirubin 0.7 (0.2-1.3) mg/dL AST 20 (14-36) U/L ALT 32 (9-52) U/L Alkaline Phosphatase 74 (38-126) U/L Total Creatine Kinase 28 L (30-135) U/L CK-MB (Mass) 1.86 (0.0-3.38) ng/mL Troponin I (0.00-0.120) ng/mL Troponin I, Quant 0.1840 H* (0.00-0.120) ng/mL Total Protein 5.3 L (6.3-8.3) g/dL Albumin 2.4 L D (3.5-5.0) g/dL Globulin 2.8 (2.2-3.9) gm/dL Albumin/Globulin Ratio 0.9 L (1.0-2.1) Triglycerides (0-149) mg/dL Cholesterol (0-199) mg/dL LDL Cholesterol Direct (0-129) mg/dL HDL Cholesterol (30-70) mg/dL Venous Blood Potassium (3.6-5.2) mmol/L Urine Color (YELLOW) Urine Clarity (Clear) Urine pH (5.0-8.0) Ur Specific [place] (1.003-1.030) Urine Protein (NEGATIVE) mg/dL Urine Glucose (UA) (Normal) mg/dL Urine Ketones (NEGATIVE) mg/dL Urine Blood (NEGATIVE) Urine Nitrate (NEGATIVE) Urine Bilirubin (NEGATIVE) Urine Urobilinogen (0.2-1.0) mg/dL Ur Leukocyte Esterase (Negative) Ana/uL Urine WBC (Auto) (0-5) /hpf Urine RBC (Auto) (0-3) /hpf Ur Transition Epith Cell (0-3) /hpf Urine Bacteria (<OCC) Hyaline Casts (0-2) /lpf Blood Type Antibody Screen Antibody Identification 12/02/16 12/02/16 12/02/16 Range/Units 17:00 16:50 16:40 WBC 1.0 L* (4.8-10.8) K/uL RBC 3.86 (3.80-5.20) Mil/uL Hgb 12.0 (11.0-16.0) g/dL Hct 35.1 (34.0-47.0) % MCV 91.1 (81.0-99.0) fL MCH 31.1 H (27.0-31.0) pg MCHC 34.1 (33.0-37.0) g/dL RDW 16.7 H (11.5-14.5) % Plt Count 126 L (130-400) K/uL MPV 7.2 (7.2-11.7) fL Neut % (Auto) 87.5 H (50.0-75.0) % Lymph % (Auto) 10.3 L (20.0-40.0) % Whitley % (Auto) 1.7 (0.0-10.0) % Eos % (Auto) 0.3 (0.0-4.0) % Baso % (Auto) 0.2 (0.0-2.0) % Neut # 0.9 L (1.8-7.0) K/uL Lymph # 0.1 L (1.0-4.3) K/uL Whitley # 0.0 (0.0-0.8) K/uL Eos # 0.0 (0.0-0.7) K/uL Baso # 0.0 (0.0-0.2) K/uL Total Counted Neutrophils % (Manual) 54 (50-75) % Band Neutrophils % 28 H* (0-2) % Lymphocytes % (Manual) 9 L (20-40) % Reactive Lymphs % Monocytes % (Manual) 7 (0-10) % Eosinophils % (Manual) Basophils % (Manual) Metamyelocytes % 1 H (0-0) % Myelocytes % 1 H (0-0) % Promyelocytes % Blast Cells % Plasma Cell % (Manual) Nucleated RBC % 6 H (0-0) % Hypersegmented Polys Smudge Cells Toxic Granulation Present Dohle Bodies Present Michael Rods Platelet Estimate Slightly decreased L (NORMAL) Plt Clumps, EDTA Large Platelets Giant Platelets RBC Morphology Polychromasia Hypochromasia (manual) Poikilocytosis (manual Basophilic Stippling Anisocytosis (manual) Slight Microcytosis (manual) Macrocytosis (manual) Spherocytes Sickle Cells Target Cells Tear Drop Cells Ovalocytes Stomatocytes Helmet Cells [place] Bodies Risa Cells Acanthocytes (Spur) Rouleaux Schistocytes Smear Path Review PT (9.7-12.2) SECONDS INR APTT (21-34) SECONDS pO2 35 (30-55) mm/Hg VBG pH 7.46 H (7.32-7.43) VBG pCO2 42 (40-60) mmHg VBG HCO3 28.4 mmol/L VBG Total CO2 31.2 H (22-28) mmol/L VBG Base Excess 5.4 H (0.0-2.0) mmol/L VBG Potassium 5.1 (3.6-5.2) mmol/L Sodium 135.0 (132-148) mmol/l Chloride 90.0 L (98-107) mmol/L Glucose 77 (65-105) mg/dl Lactate 1.9 (0.7-2.1) mmol/L Potassium (3.6-5.2) mmol/L Carbon Dioxide (22-30) mmol/L Anion Gap (10-20) BUN (7-17) mg/dL Creatinine (0.7-1.2) mg/dL Est GFR ( Amer) Est GFR (Non-Af Amer) POC Glucose (mg/dL) (65-110) mg/dL Random Glucose (65-105) mg/dL Hemoglobin A1c (4.2-6.5) % Calcium (8.6-10.4) mg/dl Phosphorus (2.5-4.5) mg/dL Magnesium (1.6-2.3) mg/dL Total Bilirubin (0.2-1.3) mg/dL AST (14-36) U/L ALT (9-52) U/L Alkaline Phosphatase (38-126) U/L Total Creatine Kinase (30-135) U/L CK-MB (Mass) (0.0-3.38) ng/mL Troponin I (0.00-0.120) ng/mL Troponin I, Quant (0.00-0.120) ng/mL Total Protein (6.3-8.3) g/dL Albumin (3.5-5.0) g/dL Globulin (2.2-3.9) gm/dL Albumin/Globulin Ratio (1.0-2.1) Triglycerides (0-149) mg/dL Cholesterol (0-199) mg/dL LDL Cholesterol Direct (0-129) mg/dL HDL Cholesterol (30-70) mg/dL Venous Blood Potassium 5.1 (3.6-5.2) mmol/L Urine Color Erin (YELLOW) Urine Clarity Hazy (Clear) Urine pH 5.0 (5.0-8.0) Ur Specific [place] 1.019 (1.003-1.030) Urine Protein Negative (NEGATIVE) mg/dL Urine Glucose (UA) Normal (Normal) mg/dL Urine Ketones Trace (NEGATIVE) mg/dL Urine Blood Negative (NEGATIVE) Urine Nitrate Negative (NEGATIVE) Urine Bilirubin Negative (NEGATIVE) Urine Urobilinogen Normal (0.2-1.0) mg/dL Ur Leukocyte Esterase Neg (Negative) Ana/uL Urine WBC (Auto) 1 (0-5) /hpf Urine RBC (Auto) < 1 (0-3) /hpf Ur Transition Epith Cell < 1 (0-3) /hpf Urine Bacteria Rare (<OCC) Hyaline Casts 3-5 H (0-2) /lpf Blood Type Antibody Screen Antibody Identification 12/02/16 12/02/16 12/02/16 Range/Units 16:40 16:15 16:08 WBC (4.8-10.8) K/uL RBC (3.80-5.20) Mil/uL Hgb (11.0-16.0) g/dL Hct (34.0-47.0) % MCV (81.0-99.0) fL MCH (27.0-31.0) pg MCHC (33.0-37.0) g/dL RDW (11.5-14.5) % Plt Count (130-400) K/uL MPV (7.2-11.7) fL Neut % (Auto) (50.0-75.0) % Lymph % (Auto) (20.0-40.0) % [place] % (Auto) (0.0-10.0) % Eos % (Auto) (0.0-4.0) % Baso % (Auto) (0.0-2.0) % Neut # (1.8-7.0) K/uL Lymph # (1.0-4.3) K/uL Whitley # (0.0-0.8) K/uL Eos # (0.0-0.7) K/uL Baso # (0.0-0.2) K/uL Total Counted Neutrophils % (Manual) (50-75) % Band Neutrophils % (0-2) % Lymphocytes % (Manual) (20-40) % Reactive Lymphs % Monocytes % (Manual) (0-10) % Eosinophils % (Manual) Basophils % (Manual) Metamyelocytes % (0-0) % Myelocytes % (0-0) % Promyelocytes % Blast Cells % Plasma Cell % (Manual) Nucleated RBC % (0-0) % Hypersegmented Polys Smudge Cells Toxic Granulation Dohle Bodies Michael Rods Platelet Estimate (NORMAL) Plt Clumps, EDTA Large Platelets Giant Platelets RBC Morphology Polychromasia Hypochromasia (manual) Poikilocytosis (manual Basophilic Stippling Anisocytosis (manual) Microcytosis (manual) Macrocytosis (manual) Spherocytes Sickle Cells Target Cells Tear Drop Cells Ovalocytes Stomatocytes Helmet Cells [place] Bodies [place] Cells Acanthocytes (Spur) Rouleaux Schistocytes Smear Path Review PT (9.7-12.2) SECONDS INR APTT (21-34) SECONDS pO2 (30-55) mm/Hg VBG pH (7.32-7.43) VBG pCO2 (40-60) mmHg VBG HCO3 mmol/L VBG Total CO2 (22-28) mmol/L VBG Base Excess (0.0-2.0) mmol/L VBG Potassium (3.6-5.2) mmol/L Sodium 130 L (132-148) mmol/l Chloride 87 L (98-107) mmol/L Glucose (65-105) mg/dl Lactate (0.7-2.1) mmol/L Potassium 4.4 (3.6-5.2) mmol/L Carbon Dioxide 28 (22-30) mmol/L Anion Gap 19 (10-20) BUN 73 H (7-17) mg/dL Creatinine 2.3 H (0.7-1.2) mg/dL Est GFR ( Amer) 25 Est GFR (Non-Af Amer) 21 POC Glucose (mg/dL) (65-110) mg/dL Random Glucose 67 (65-105) mg/dL Hemoglobin A1c 6.8 H (4.2-6.5) % Calcium 9.2 (8.6-10.4) mg/dl Phosphorus (2.5-4.5) mg/dL Magnesium (1.6-2.3) mg/dL Total Bilirubin 1.3 (0.2-1.3) mg/dL AST 18 (14-36) U/L ALT 27 (9-52) U/L Alkaline Phosphatase 95 (38-126) U/L Total Creatine Kinase (30-135) U/L CK-MB (Mass) (0.0-3.38) ng/mL Troponin I 0.1430 H* (0.00-0.120) ng/mL Troponin I, Quant (0.00-0.120) ng/mL Total Protein 5.4 L (6.3-8.3) g/dL Albumin 3.3 L (3.5-5.0) g/dL Globulin 2.1 L (2.2-3.9) gm/dL Albumin/Globulin Ratio 1.6 (1.0-2.1) Triglycerides 188 H (0-149) mg/dL Cholesterol 152 (0-199) mg/dL LDL Cholesterol Direct 61 (0-129) mg/dL HDL Cholesterol 30 (30-70) mg/dL Venous Blood Potassium (3.6-5.2) mmol/L Urine Color (YELLOW) Urine Clarity (Clear) Urine pH (5.0-8.0) Ur Specific [place] (1.003-1.030) Urine Protein (NEGATIVE) mg/dL Urine Glucose (UA) (Normal) mg/dL Urine Ketones (NEGATIVE) mg/dL Urine Blood (NEGATIVE) Urine Nitrate (NEGATIVE) Urine Bilirubin (NEGATIVE) Urine Urobilinogen (0.2-1.0) mg/dL Ur Leukocyte Esterase (Negative) Ana/uL Urine WBC (Auto) (0-5) /hpf Urine RBC (Auto) (0-3) /hpf Ur Transition Epith Cell (0-3) /hpf Urine Bacteria (<OCC) Hyaline Casts (0-2) /lpf Blood Type B POSITIVE Antibody Screen Positive Antibody Identification Anti Jka 12/02/16 Range/Units 15:39 WBC (4.8-10.8) K/uL RBC (3.80-5.20) Mil/uL Hgb (11.0-16.0) g/dL Hct (34.0-47.0) % MCV (81.0-99.0) fL MCH (27.0-31.0) pg MCHC (33.0-37.0) g/dL RDW (11.5-14.5) % Plt Count (130-400) K/uL MPV (7.2-11.7) fL Neut % (Auto) (50.0-75.0) % Lymph % (Auto) (20.0-40.0) % [place] % (Auto) (0.0-10.0) % Eos % (Auto) (0.0-4.0) % Baso % (Auto) (0.0-2.0) % Neut # (1.8-7.0) K/uL Lymph # (1.0-4.3) K/uL [place] # (0.0-0.8) K/uL Eos # (0.0-0.7) K/uL Baso # (0.0-0.2) K/uL Total Counted Neutrophils % (Manual) (50-75) % Band Neutrophils % (0-2) % Lymphocytes % (Manual) (20-40) % Reactive Lymphs % Monocytes % (Manual) (0-10) % Eosinophils % (Manual) Basophils % (Manual) Metamyelocytes % (0-0) % Myelocytes % (0-0) % Promyelocytes % Blast Cells % Plasma Cell % (Manual) Nucleated RBC % (0-0) % Hypersegmented Polys Smudge Cells Toxic Granulation Dohle Bodies Michael Rods Platelet Estimate (NORMAL) Plt Clumps, EDTA Large Platelets Giant Platelets RBC Morphology Polychromasia Hypochromasia (manual) Poikilocytosis (manual Basophilic Stippling Anisocytosis (manual) Microcytosis (manual) Macrocytosis (manual) Spherocytes Sickle Cells Target Cells Tear Drop Cells Ovalocytes Stomatocytes Helmet Cells [place] Bodies Risa Cells Acanthocytes (Spur) Rouleaux Schistocytes Smear Path Review PT (9.7-12.2) SECONDS INR APTT (21-34) SECONDS pO2 (30-55) mm/Hg VBG pH (7.32-7.43) VBG pCO2 (40-60) mmHg VBG HCO3 mmol/L VBG Total CO2 (22-28) mmol/L VBG Base Excess (0.0-2.0) mmol/L VBG Potassium (3.6-5.2) mmol/L Sodium (132-148) mmol/l Chloride (98-107) mmol/L Glucose (65-105) mg/dl Lactate (0.7-2.1) mmol/L Potassium (3.6-5.2) mmol/L Carbon Dioxide (22-30) mmol/L Anion Gap (10-20) BUN (7-17) mg/dL Creatinine (0.7-1.2) mg/dL Est GFR ( Amer) Est GFR (Non-Af Amer) POC Glucose (mg/dL) 80 (65-110) mg/dL Random Glucose (65-105) mg/dL Hemoglobin A1c (4.2-6.5) % Calcium (8.6-10.4) mg/dl Phosphorus (2.5-4.5) mg/dL Magnesium (1.6-2.3) mg/dL Total Bilirubin (0.2-1.3) mg/dL AST (14-36) U/L ALT (9-52) U/L Alkaline Phosphatase (38-126) U/L Total Creatine Kinase (30-135) U/L CK-MB (Mass) (0.0-3.38) ng/mL Troponin I (0.00-0.120) ng/mL Troponin I, Quant (0.00-0.120) ng/mL Total Protein (6.3-8.3) g/dL Albumin (3.5-5.0) g/dL Globulin (2.2-3.9) gm/dL Albumin/Globulin Ratio (1.0-2.1) Triglycerides (0-149) mg/dL Cholesterol (0-199) mg/dL LDL Cholesterol Direct (0-129) mg/dL HDL Cholesterol (30-70) mg/dL Venous Blood Potassium (3.6-5.2) mmol/L Urine Color (YELLOW) Urine Clarity (Clear) Urine pH (5.0-8.0) Ur Specific [place] (1.003-1.030) Urine Protein (NEGATIVE) mg/dL Urine Glucose (UA) (Normal) mg/dL Urine Ketones (NEGATIVE) mg/dL Urine Blood (NEGATIVE) Urine Nitrate (NEGATIVE) Urine Bilirubin (NEGATIVE) Urine Urobilinogen (0.2-1.0) mg/dL Ur Leukocyte Esterase (Negative) Ana/uL Urine WBC (Auto) (0-5) /hpf Urine RBC (Auto) (0-3) /hpf Ur Transition Epith Cell (0-3) /hpf Urine Bacteria (<OCC) Hyaline Casts (0-2) /lpf Blood Type Antibody Screen Antibody Identification Laboratory Results - last 24 hr 12/02/16 12/02/16 12/02/16 15:39 16:08 16:15 WBC RBC Hgb Hct MCV MCH MCHC RDW Plt Count MPV Neut % (Auto) Lymph % (Auto) [place] % (Auto) Eos % (Auto) Baso % (Auto) Neut # Lymph # [place] # Eos # Baso # Total Counted Neutrophils % (Manual) Band Neutrophils % Lymphocytes % (Manual) Reactive Lymphs % Monocytes % (Manual) Eosinophils % (Manual) Basophils % (Manual) Metamyelocytes % Myelocytes % Promyelocytes % Blast Cells % Plasma Cell % (Manual) Nucleated RBC % Hypersegmented Polys Smudge Cells Toxic Granulation Dohle Bodies Michael Rods Platelet Estimate Plt Clumps, EDTA Large Platelets Giant Platelets RBC Morphology Polychromasia Hypochromasia (manual) Poikilocytosis (manual Basophilic Stippling Anisocytosis (manual) Microcytosis (manual) Macrocytosis (manual) Spherocytes Sickle Cells Target Cells Tear Drop Cells Ovalocytes Stomatocytes Helmet Cells [place] Bodies [place] Cells Acanthocytes (Spur) Rouleaux Schistocytes Smear Path Review PT INR APTT pO2 VBG pH VBG pCO2 VBG HCO3 VBG Total CO2 VBG Base Excess VBG Potassium Sodium Chloride Glucose Lactate Potassium Carbon Dioxide Anion Gap BUN Creatinine Est GFR ( Amer) Est GFR (Non-Af Amer) POC Glucose (mg/dL) 80 Random Glucose Hemoglobin A1c 6.8 H Calcium Phosphorus Magnesium Total Bilirubin AST ALT Alkaline Phosphatase Total Creatine Kinase CK-MB (Mass) Troponin I Troponin I, Quant Total Protein Albumin Globulin Albumin/Globulin Ratio Triglycerides Cholesterol LDL Cholesterol Direct HDL Cholesterol Venous Blood Potassium Urine Color Urine Clarity Urine pH Ur Specific [place] Urine Protein Urine Glucose (UA) Urine Ketones Urine Blood Urine Nitrate Urine Bilirubin Urine Urobilinogen Ur Leukocyte Esterase Urine WBC (Auto) Urine RBC (Auto) Ur Transition Epith Cell Urine Bacteria Hyaline Casts Blood Type B POSITIVE Antibody Screen Positive Antibody Identification Anti Jka 12/02/16 12/02/16 12/02/16 16:40 16:40 16:50 WBC RBC Hgb Hct MCV MCH MCHC RDW Plt Count MPV Neut % (Auto) Lymph % (Auto) [place] % (Auto) Eos % (Auto) Baso % (Auto) Neut # Lymph # [place] # Eos # Baso # Total Counted Neutrophils % (Manual) Band Neutrophils % Lymphocytes % (Manual) Reactive Lymphs % Monocytes % (Manual) Eosinophils % (Manual) Basophils % (Manual) Metamyelocytes % Myelocytes % Promyelocytes % Blast Cells % Plasma Cell % (Manual) Nucleated RBC % Hypersegmented Polys Smudge Cells Toxic Granulation Dohle Bodies Michael Rods Platelet Estimate Plt Clumps, EDTA Large Platelets Giant Platelets RBC Morphology Polychromasia Hypochromasia (manual) Poikilocytosis (manual Basophilic Stippling Anisocytosis (manual) Microcytosis (manual) Macrocytosis (manual) Spherocytes Sickle Cells Target Cells Tear Drop Cells Ovalocytes Stomatocytes Helmet Cells [place] Bodies [place] Cells Acanthocytes (Spur) Rouleaux Schistocytes Smear Path Review PT INR APTT pO2 35 VBG pH 7.46 H VBG pCO2 42 VBG HCO3 28.4 VBG Total CO2 31.2 H VBG Base Excess 5.4 H VBG Potassium 5.1 Sodium 130 L 135.0 Chloride 87 L 90.0 L Glucose 77 Lactate 1.9 Potassium 4.4 Carbon Dioxide 28 Anion Gap 19 BUN 73 H Creatinine 2.3 H Est GFR ( Amer) 25 Est GFR (Non-Af Amer) 21 POC Glucose (mg/dL) Random Glucose 67 Hemoglobin A1c Calcium 9.2 Phosphorus Magnesium Total Bilirubin 1.3 AST 18 ALT 27 Alkaline Phosphatase 95 Total Creatine Kinase CK-MB (Mass) Troponin I 0.1430 H* Troponin I, Quant Total Protein 5.4 L Albumin 3.3 L Globulin 2.1 L Albumin/Globulin Ratio 1.6 Triglycerides 188 H Cholesterol 152 LDL Cholesterol Direct 61 HDL Cholesterol 30 Venous Blood Potassium 5.1 Urine Color Erin Urine Clarity Hazy Urine pH 5.0 Ur Specific [place] 1.019 Urine Protein Negative Urine Glucose (UA) Normal Urine Ketones Trace Urine Blood Negative Urine Nitrate Negative Urine Bilirubin Negative Urine Urobilinogen Normal Ur Leukocyte Esterase Neg Urine WBC (Auto) 1 Urine RBC (Auto) < 1 Ur Transition Epith Cell < 1 Urine Bacteria Rare Hyaline Casts 3-5 H Blood Type Antibody Screen Antibody Identification 12/02/16 12/02/16 12/03/16 17:00 17:00 02:45 WBC 1.0 L* RBC 3.86 Hgb 12.0 Hct 35.1 MCV 91.1 MCH 31.1 H MCHC 34.1 RDW 16.7 H Plt Count 126 L MPV 7.2 Neut % (Auto) 87.5 H Lymph % (Auto) 10.3 L [place] % (Auto) 1.7 Eos % (Auto) 0.3 Baso % (Auto) 0.2 Neut # 0.9 L Lymph # 0.1 L [place] # 0.0 Eos # 0.0 Baso # 0.0 Total Counted Neutrophils % (Manual) 54 Band Neutrophils % 28 H* Lymphocytes % (Manual) 9 L Reactive Lymphs % Monocytes % (Manual) 7 Eosinophils % (Manual) Basophils % (Manual) Metamyelocytes % 1 H Myelocytes % 1 H Promyelocytes % Blast Cells % Plasma Cell % (Manual) Nucleated RBC % 6 H Hypersegmented Polys Smudge Cells Toxic Granulation Present Dohle Bodies Present Michael Rods Platelet Estimate Slightly decreased L Plt Clumps, EDTA Large Platelets Giant Platelets RBC Morphology Polychromasia Hypochromasia (manual) Poikilocytosis (manual Basophilic Stippling Anisocytosis (manual) Slight Microcytosis (manual) Macrocytosis (manual) Spherocytes Sickle Cells Target Cells Tear Drop Cells Ovalocytes Stomatocytes Helmet Cells [place] Bodies [place] Cells Acanthocytes (Spur) Rouleaux Schistocytes Smear Path Review PT 15.8 H INR 1.4 APTT 48 H pO2 VBG pH VBG pCO2 VBG HCO3 VBG Total CO2 VBG Base Excess VBG Potassium Sodium 136 Chloride 107 D Glucose Lactate Potassium 3.7 Carbon Dioxide 21 L Anion Gap 12 BUN 52 H Creatinine 1.1 Est GFR ( Amer) 59 Est GFR (Non-Af Amer) 49 POC Glucose (mg/dL) Random Glucose 63 L Hemoglobin A1c Calcium 8.0 L Phosphorus 4.8 H Magnesium 1.7 Total Bilirubin 0.7 AST 20 ALT 32 Alkaline Phosphatase 74 Total Creatine Kinase 28 L CK-MB (Mass) 1.86 Troponin I Troponin I, Quant 0.1840 H* Total Protein 5.3 L Albumin 2.4 L D Globulin 2.8 Albumin/Globulin Ratio 0.9 L Triglycerides Cholesterol LDL Cholesterol Direct HDL Cholesterol Venous Blood Potassium Urine Color Urine Clarity Urine pH Ur Specific [place] Urine Protein Urine Glucose (UA) Urine Ketones Urine Blood Urine Nitrate Urine Bilirubin Urine Urobilinogen Ur Leukocyte Esterase Urine WBC (Auto) Urine RBC (Auto) Ur Transition Epith Cell Urine Bacteria Hyaline Casts Blood Type Antibody Screen Antibody Identification 12/03/16 12/03/16 12/03/16 05:27 10:25 11:54 WBC 0.5 L* RBC 3.17 L Hgb 9.7 L D Hct 29.8 L MCV 94.0 D MCH 30.7 MCHC 32.6 L RDW 17.0 H Plt Count 91 L D MPV 6.9 L Neut % (Auto) 92.1 H Lymph % (Auto) 6.4 L Whitley % (Auto) 0.8 Eos % (Auto) 0.6 Baso % (Auto) 0.1 Neut # 0.5 L Lymph # 0.0 L Whitley # 0.0 Eos # 0.0 Baso # 0.0 Total Counted Cancelled Neutrophils % (Manual) Cancelled Band Neutrophils % Cancelled Lymphocytes % (Manual) Cancelled Reactive Lymphs % Cancelled Monocytes % (Manual) Cancelled Eosinophils % (Manual) Cancelled Basophils % (Manual) Cancelled Metamyelocytes % Cancelled Myelocytes % Cancelled Promyelocytes % Cancelled Blast Cells % Cancelled Plasma Cell % (Manual) Cancelled Nucleated RBC % Cancelled Hypersegmented Polys Cancelled Smudge Cells Cancelled Toxic Granulation Cancelled Dohle Bodies Cancelled Michael Rods Cancelled Platelet Estimate Cancelled Plt Clumps, EDTA Cancelled Large Platelets Cancelled Giant Platelets Cancelled RBC Morphology Cancelled Polychromasia Cancelled Hypochromasia (manual) Cancelled Poikilocytosis (manual Cancelled Basophilic Stippling Cancelled Anisocytosis (manual) Cancelled Microcytosis (manual) Cancelled Macrocytosis (manual) Cancelled Spherocytes Cancelled Sickle Cells Cancelled Target Cells Cancelled Tear Drop Cells Cancelled Ovalocytes Cancelled Stomatocytes Cancelled Helmet Cells Cancelled [place] Bodies Cancelled Risa Cells Cancelled Acanthocytes (Spur) Cancelled Rouleaux Cancelled Schistocytes Cancelled Smear Path Review PT INR APTT pO2 VBG pH VBG pCO2 VBG HCO3 VBG Total CO2 VBG Base Excess VBG Potassium Sodium Chloride Glucose Lactate Potassium Carbon Dioxide Anion Gap BUN Creatinine Est GFR ( Amer) Est GFR (Non-Af Amer) POC Glucose (mg/dL) 64 L Random Glucose Hemoglobin A1c Calcium Phosphorus Magnesium Total Bilirubin AST ALT Alkaline Phosphatase Total Creatine Kinase 26 L CK-MB (Mass) Troponin I Troponin I, Quant Total Protein Albumin Globulin Albumin/Globulin Ratio Triglycerides Cholesterol LDL Cholesterol Direct HDL Cholesterol Venous Blood Potassium Urine Color Urine Clarity Urine pH Ur Specific [place] Urine Protein Urine Glucose (UA) Urine Ketones Urine Blood Urine Nitrate Urine Bilirubin Urine Urobilinogen Ur Leukocyte Esterase Urine WBC (Auto) Urine RBC (Auto) Ur Transition Epith Cell Urine Bacteria Hyaline Casts Blood Type Antibody Screen Antibody Identification 12/03/16 14:32 WBC RBC Hgb Hct MCV MCH MCHC RDW Plt Count MPV Neut % (Auto) Lymph % (Auto) Whitley % (Auto) Eos % (Auto) Baso % (Auto) Neut # Lymph # Whitley # Eos # Baso # Total Counted Neutrophils % (Manual) Band Neutrophils % Lymphocytes % (Manual) Reactive Lymphs % Monocytes % (Manual) Eosinophils % (Manual) Basophils % (Manual) Metamyelocytes % Myelocytes % Promyelocytes % Blast Cells % Plasma Cell % (Manual) Nucleated RBC % Hypersegmented Polys Smudge Cells Toxic Granulation Dohle Bodies Michael Rods Platelet Estimate Plt Clumps, EDTA Large Platelets Giant Platelets RBC Morphology Polychromasia Hypochromasia (manual) Poikilocytosis (manual Basophilic Stippling Anisocytosis (manual) Microcytosis (manual) Macrocytosis (manual) Spherocytes Sickle Cells Target Cells Tear Drop Cells Ovalocytes Stomatocytes Helmet Cells [place] Bodies Risa Cells Acanthocytes (Spur) Rouleaux Schistocytes Smear Path Review PT INR APTT pO2 VBG pH VBG pCO2 VBG HCO3 VBG Total CO2 VBG Base Excess VBG Potassium Sodium Chloride Glucose Lactate Potassium Carbon Dioxide Anion Gap BUN Creatinine Est GFR ( Amer) Est GFR (Non-Af Amer) POC Glucose (mg/dL) 117 H Random Glucose Hemoglobin A1c Calcium Phosphorus Magnesium Total Bilirubin AST ALT Alkaline Phosphatase Total Creatine Kinase CK-MB (Mass) Troponin I Troponin I, Quant Total Protein Albumin Globulin Albumin/Globulin Ratio Triglycerides Cholesterol LDL Cholesterol Direct HDL Cholesterol Venous Blood Potassium Urine Color Urine Clarity Urine pH Ur Specific [place] Urine Protein Urine Glucose (UA) Urine Ketones Urine Blood Urine Nitrate Urine Bilirubin Urine Urobilinogen Ur Leukocyte Esterase Urine WBC (Auto) Urine RBC (Auto) Ur Transition Epith Cell Urine Bacteria Hyaline Casts Blood Type Antibody Screen Antibody Identification EKG/Cardiology Studies: Cardiology / EKG Studies 12/02/16 15:56 ELECTROCARDIOGRAM Stat Comment: ED 12 Mode Of Transportation: STRETCHER Reason For Exam: adm 10/26/17 16:08 ELECTROCARDIOGRAM Stat Comment: ED 12 Mode Of Transportation: STRETCHER Reason For Exam: adm 12/03/16 08:58 EKG [ELECTROCARDIOGRAM] Stat Comment: Mode Of Transportation: Reason For Exam: positive troponin 12/03/16 08:59 EKG [ELECTROCARDIOGRAM] Stat Comment: Mode Of Transportation: Reason For Exam: r/o acs Fingerstick Blood Sugar Results: 80 Review of Systems - Review of Systems Systems not reviewed;Unavailable: Altered Mental Status - Cardiovascular Cardiovascular: absent: Chest Pain - Gastrointestinal Gastrointestinal: absent: Abdominal Pain Critical Care Progress Note - Nutrition Nutrition: Nutrition Category Date Time Status NPO Diet [DIET] Diets 12/02/16 Dinner Active Assessment/Plan - Assessment and Plan (Free Text) Assessment: Patient is a 71 year old female with PMHx breast cancer with b/l mastectomy, uterine cancer with hysterectomy, and 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 Patient had a tumor at the base of the skull that was removed Nov 11 at [facility]. Patient admitted for AMS and respiratory distress. Family in agreement for patient to be DNR/ DNI Neuro: hx brain mets, tumor removed 11/11/16 * Precedex for agitation * Head CT: suspicious for small lso to hypointense fluid collection along left brain convexity with maximum thickness of 3.7 mm may represent old subdural hematoma or posttraumatic hygroma. No evidence of acute intracranial hemorrhage. Status post left suboccipital craniectomy. No evidence of mass lesion, mass effect or midline shift in this study. Cardio: hypotension * monitor * D5, 1/2 NS @ 150cc/hr * f/u echo and venous dopplers Pulm: respiratory distress * cxray: patchy bilateral airspace opacities with left mid to lower lobe predominence. * nonrebreather Heme: Neutropenia * 1 dose Granix given ID: * Meropenem * Vanco * f/u blood culture * MRSA screen Prophylaxis: * Heparin 5000 u sc q8h * Protonix 40 mg daily * palliative care consult <Nabil Patel - Last Filed: 12/03/16 16:58> CCU Objective - Vital Signs / Intake & Output Vital Signs (Last 4 hours): Vital Signs Temp 12/03/16 13:47 98.3 F 12/03/16 12:47 100.6 F H Intake and Output (Last 8hrs): Intake & Output 12/03/16 12/03/16 12/03/16 06:59 14:59 22:59 Intake Total 100 Output Total 75 Balance 25 Weight 112 lb 3.445 oz Intake: Intake, IV Amount 100 Right Distal Port Port-A- 100 Cath Output: Urine 75 Urethral (Dickson) 75 Other: Voiding Method Indwelling Catheter - Medications Active Medications: Active Medications Generic Name Dose Route Start Last Admin Trade Name Freq PRN Reason Stop Dose Admin Acetaminophen 650 mg 12/03/16 11:53 12/03/16 12:47 Tylenol 650 Mg Supp [place] 650 mg Q6 PRN Administration Fever >100.4 F Dexamethasone 2 mg 12/03/16 10:00 12/03/16 12:33 Decadron PO Not Given Q12 SEVERINO Diltiazem HCl 180 mg 12/03/16 10:00 Cardizem Cd PO ONCE SEVERINO Gabapentin 300 mg 12/03/16 10:00 12/03/16 15:28 Neurontin PO Not Given TID SEVERINO Heparin Sodium (Porcine) 5,000 units 12/03/16 06:00 12/03/16 15:46 Heparin SC 5,000 units Q8 SEVERINO Administration Vancomycin/Sodium Chloride 1 gm in 200 mls @ 133.333 mls/hr 12/03/16 08:00 08:52 Vancomycin 1 Gm/Ns 200 Ml IVPB 12/08/16 08:01 133.333 mls/hr Q24H SEVERINO Administration Meropenem 500 mg/ Sodium 100 mls @ 100 mls/hr 12/03/16 15:00 12/03/16 15:42 Chloride IVPB 100 mls/hr Q12H SEVERINO Administration Dextrose/Sodium Chloride 1,000 mls @ 150 mls/hr 12/03/16 12:13 12/03/16 12:48 Dextrose 5%/0.9% Ns 1000 Ml IV 12/03/16 18:52 150 mls/hr .[id number] ONE Administration Dexmedetomidine HCl 200 mcg/ 50 mls @ 2.54 mls/hr 12/03/16 14:57 12/03/16 15: 35 Sodium Chloride IV 0.2 mcg/kg/hr TITR PRN 2.54 mls/hr Agitation Administration Protocol 0.2 MCG/KG/HR Pantoprazole Sodium 40 mg 12/03/16 10:00 12/03/16 12:49 Protonix Inj IVP 40 mg DAILY SEVERINO Administration Fluticasone/Salmeterol 1 puff 12/03/16 08:00 Advair Diskus 250/50 INH RQ12 SEVERINO - Patient Studies Lab Studies: Microbiology Studies 12/02/16 15:45 Gram Stain - Final Blood-Venous 12/02/16 16:00 Gram Stain - Final Blood-Venous Lab Studies 12/03/16 12/03/16 12/03/16 Range/Units 14:32 11:54 10:25 WBC (4.8-10.8) K/uL RBC (3.80-5.20) Mil/uL Hgb (11.0-16.0) g/dL Hct (34.0-47.0) % MCV (81.0-99.0) fL MCH (27.0-31.0) pg MCHC (33.0-37.0) g/dL RDW (11.5-14.5) % Plt Count (130-400) K/uL MPV (7.2-11.7) fL Neut % (Auto) (50.0-75.0) % Lymph % (Auto) (20.0-40.0) % Whitley % (Auto) (0.0-10.0) % Eos % (Auto) (0.0-4.0) % Baso % (Auto) (0.0-2.0) % Neut # (1.8-7.0) K/uL Lymph # (1.0-4.3) K/uL Whitley # (0.0-0.8) K/uL Eos # (0.0-0.7) K/uL Baso # (0.0-0.2) K/uL Total Counted Neutrophils % (Manual) (50-75) % Band Neutrophils % (0-2) % Lymphocytes % (Manual) (20-40) % Reactive Lymphs % Monocytes % (Manual) (0-10) % Eosinophils % (Manual) Basophils % (Manual) Metamyelocytes % (0-0) % Myelocytes % (0-0) % Promyelocytes % Blast Cells % Plasma Cell % (Manual) Nucleated RBC % (0-0) % Hypersegmented Polys Smudge Cells Toxic Granulation Dohle Bodies Michael Rods Platelet Estimate (NORMAL) Plt Clumps, EDTA Large Platelets Giant Platelets RBC Morphology Polychromasia Hypochromasia (manual) Poikilocytosis (manual Basophilic Stippling Anisocytosis (manual) Microcytosis (manual) Macrocytosis (manual) Spherocytes Sickle Cells Target Cells Tear Drop Cells Ovalocytes Stomatocytes Helmet Cells [place] Bodies [place] Cells Acanthocytes (Spur) Rouleaux Schistocytes Smear Path Review PT (9.7-12.2) SECONDS INR APTT (21-34) SECONDS pO2 (30-55) mm/Hg VBG pH (7.32-7.43) VBG pCO2 (40-60) mmHg VBG HCO3 mmol/L VBG Total CO2 (22-28) mmol/L VBG Base Excess (0.0-2.0) mmol/L VBG Potassium (3.6-5.2) mmol/L Sodium (132-148) mmol/l Chloride (98-107) mmol/L Glucose (65-105) mg/dl Lactate (0.7-2.1) mmol/L Potassium (3.6-5.2) mmol/L Carbon Dioxide (22-30) mmol/L Anion Gap (10-20) BUN (7-17) mg/dL Creatinine (0.7-1.2) mg/dL Est GFR ( Amer) Est GFR (Non-Af Amer) POC Glucose (mg/dL) 117 H 64 L (65-110) mg/dL Random Glucose (65-105) mg/dL Hemoglobin A1c (4.2-6.5) % Calcium (8.6-10.4) mg/dl Phosphorus (2.5-4.5) mg/dL Magnesium (1.6-2.3) mg/dL Total Bilirubin (0.2-1.3) mg/dL AST (14-36) U/L ALT (9-52) U/L Alkaline Phosphatase (38-126) U/L Total Creatine Kinase 26 L (30-135) U/L CK-MB (Mass) (0.0-3.38) ng/mL Troponin I (0.00-0.120) ng/mL Troponin I, Quant (0.00-0.120) ng/mL Total Protein (6.3-8.3) g/dL Albumin (3.5-5.0) g/dL Globulin (2.2-3.9) gm/dL Albumin/Globulin Ratio (1.0-2.1) Triglycerides (0-149) mg/dL Cholesterol (0-199) mg/dL LDL Cholesterol Direct (0-129) mg/dL HDL Cholesterol (30-70) mg/dL Venous Blood Potassium (3.6-5.2) mmol/L Urine Color (YELLOW) Urine Clarity (Clear) Urine pH (5.0-8.0) Ur Specific [place] (1.003-1.030) Urine Protein (NEGATIVE) mg/dL Urine Glucose (UA) (Normal) mg/dL Urine Ketones (NEGATIVE) mg/dL Urine Blood (NEGATIVE) Urine Nitrate (NEGATIVE) Urine Bilirubin (NEGATIVE) Urine Urobilinogen (0.2-1.0) mg/dL Ur Leukocyte Esterase (Negative) Ana/uL Urine WBC (Auto) (0-5) /hpf Urine RBC (Auto) (0-3) /hpf Ur Transition Epith Cell (0-3) /hpf Urine Bacteria (<OCC) Hyaline Casts (0-2) /lpf Blood Type Antibody Screen Antibody Identification 12/03/16 12/03/16 12/02/16 Range/Units 05:27 02:45 17:00 WBC 0.5 L* (4.8-10.8) K/uL RBC 3.17 L (3.80-5.20) Mil/uL Hgb 9.7 L D (11.0-16.0) g/dL Hct 29.8 L (34.0-47.0) % MCV 94.0 D (81.0-99.0) fL MCH 30.7 (27.0-31.0) pg MCHC 32.6 L (33.0-37.0) g/dL RDW 17.0 H (11.5-14.5) % Plt Count 91 L D (130-400) K/uL MPV 6.9 L (7.2-11.7) fL Neut % (Auto) 92.1 H (50.0-75.0) % Lymph % (Auto) 6.4 L (20.0-40.0) % Whitley % (Auto) 0.8 (0.0-10.0) % Eos % (Auto) 0.6 (0.0-4.0) % Baso % (Auto) 0.1 (0.0-2.0) % Neut # 0.5 L (1.8-7.0) K/uL Lymph # 0.0 L (1.0-4.3) K/uL Whitley # 0.0 (0.0-0.8) K/uL Eos # 0.0 (0.0-0.7) K/uL Baso # 0.0 (0.0-0.2) K/uL Total Counted Cancelled Neutrophils % (Manual) Cancelled (50-75) % Band Neutrophils % Cancelled (0-2) % Lymphocytes % (Manual) Cancelled (20-40) % Reactive Lymphs % Cancelled Monocytes % (Manual) Cancelled (0-10) % Eosinophils % (Manual) Cancelled Basophils % (Manual) Cancelled Metamyelocytes % Cancelled (0-0) % Myelocytes % Cancelled (0-0) % Promyelocytes % Cancelled Blast Cells % Cancelled Plasma Cell % (Manual) Cancelled Nucleated RBC % Cancelled (0-0) % Hypersegmented Polys Cancelled Smudge Cells Cancelled Toxic Granulation Cancelled Dohle Bodies Cancelled Michael Rods Cancelled Platelet Estimate Cancelled (NORMAL) Plt Clumps, EDTA Cancelled Large Platelets Cancelled Giant Platelets Cancelled RBC Morphology Cancelled Polychromasia Cancelled Hypochromasia (manual) Cancelled Poikilocytosis (manual Cancelled Basophilic Stippling Cancelled Anisocytosis (manual) Cancelled Microcytosis (manual) Cancelled Macrocytosis (manual) Cancelled Spherocytes Cancelled Sickle Cells Cancelled Target Cells Cancelled Tear Drop Cells Cancelled Ovalocytes Cancelled Stomatocytes Cancelled Helmet Cells Cancelled [place]ald[place] Bodies Cancelled Risa Cells Cancelled Acanthocytes (Spur) Cancelled Rouleaux Cancelled Schistocytes Cancelled Smear Path Review PT 15.8 H (9.7-12.2) SECONDS INR 1.4 APTT 48 H (21-34) SECONDS pO2 (30-55) mm/Hg VBG pH (7.32-7.43) VBG pCO2 (40-60) mmHg VBG HCO3 mmol/L VBG Total CO2 (22-28) mmol/L VBG Base Excess (0.0-2.0) mmol/L VBG Potassium (3.6-5.2) mmol/L Sodium 136 (132-148) mmol/l Chloride 107 D (98-107) mmol/L Glucose (65-105) mg/dl Lactate (0.7-2.1) mmol/L Potassium 3.7 (3.6-5.2) mmol/L Carbon Dioxide 21 L (22-30) mmol/L Anion Gap 12 (10-20) BUN 52 H (7-17) mg/dL Creatinine 1.1 (0.7-1.2) mg/dL Est GFR ( Amer) 59 Est GFR (Non-Af Amer) 49 POC Glucose (mg/dL) (65-110) mg/dL Random Glucose 63 L (65-105) mg/dL Hemoglobin A1c (4.2-6.5) % Calcium 8.0 L (8.6-10.4) mg/dl Phosphorus 4.8 H (2.5-4.5) mg/dL Magnesium 1.7 (1.6-2.3) mg/dL Total Bilirubin 0.7 (0.2-1.3) mg/dL AST 20 (14-36) U/L ALT 32 (9-52) U/L Alkaline Phosphatase 74 (38-126) U/L Total Creatine Kinase 28 L (30-135) U/L CK-MB (Mass) 1.86 (0.0-3.38) ng/mL Troponin I (0.00-0.120) ng/mL Troponin I, Quant 0.1840 H* (0.00-0.120) ng/mL Total Protein 5.3 L (6.3-8.3) g/dL Albumin 2.4 L D (3.5-5.0) g/dL Globulin 2.8 (2.2-3.9) gm/dL Albumin/Globulin Ratio 0.9 L (1.0-2.1) Triglycerides (0-149) mg/dL Cholesterol (0-199) mg/dL LDL Cholesterol Direct (0-129) mg/dL HDL Cholesterol (30-70) mg/dL Venous Blood Potassium (3.6-5.2) mmol/L Urine Color (YELLOW) Urine Clarity (Clear) Urine pH (5.0-8.0) Ur Specific [place] (1.003-1.030) Urine Protein (NEGATIVE) mg/dL Urine Glucose (UA) (Normal) mg/dL Urine Ketones (NEGATIVE) mg/dL Urine Blood (NEGATIVE) Urine Nitrate (NEGATIVE) Urine Bilirubin (NEGATIVE) Urine Urobilinogen (0.2-1.0) mg/dL Ur Leukocyte Esterase (Negative) Ana/uL Urine WBC (Auto) (0-5) /hpf Urine RBC (Auto) (0-3) /hpf Ur Transition Epith Cell (0-3) /hpf Urine Bacteria (<OCC) Hyaline Casts (0-2) /lpf Blood Type Antibody Screen Antibody Identification 12/02/16 12/02/16 12/02/16 Range/Units 17:00 16:50 16:40 WBC 1.0 L* (4.8-10.8) K/uL RBC 3.86 (3.80-5.20) Mil/uL Hgb 12.0 (11.0-16.0) g/dL Hct 35.1 (34.0-47.0) % MCV 91.1 (81.0-99.0) fL MCH 31.1 H (27.0-31.0) pg MCHC 34.1 (33.0-37.0) g/dL RDW 16.7 H (11.5-14.5) % Plt Count 126 L (130-400) K/uL MPV 7.2 (7.2-11.7) fL Neut % (Auto) 87.5 H (50.0-75.0) % Lymph % (Auto) 10.3 L (20.0-40.0) % Whitley % (Auto) 1.7 (0.0-10.0) % Eos % (Auto) 0.3 (0.0-4.0) % Baso % (Auto) 0.2 (0.0-2.0) % Neut # 0.9 L (1.8-7.0) K/uL Lymph # 0.1 L (1.0-4.3) K/uL Whitley # 0.0 (0.0-0.8) K/uL Eos # 0.0 (0.0-0.7) K/uL Baso # 0.0 (0.0-0.2) K/uL Total Counted Neutrophils % (Manual) 54 (50-75) % Band Neutrophils % 28 H* (0-2) % Lymphocytes % (Manual) 9 L (20-40) % Reactive Lymphs % Monocytes % (Manual) 7 (0-10) % Eosinophils % (Manual) Basophils % (Manual) Metamyelocytes % 1 H (0-0) % Myelocytes % 1 H (0-0) % Promyelocytes % Blast Cells % Plasma Cell % (Manual) Nucleated RBC % 6 H (0-0) % Hypersegmented Polys Smudge Cells Toxic Granulation Present Dohle Bodies Present Michael Rods Platelet Estimate Slightly decreased L (NORMAL) Plt Clumps, EDTA Large Platelets Giant Platelets RBC Morphology Polychromasia Hypochromasia (manual) Poikilocytosis (manual Basophilic Stippling Anisocytosis (manual) Slight Microcytosis (manual) Macrocytosis (manual) Spherocytes Sickle Cells Target Cells Tear Drop Cells Ovalocytes Stomatocytes Helmet Cells [place]ald[place] Bodies Risa Cells Acanthocytes (Spur) Rouleaux Schistocytes Smear Path Review PT (9.7-12.2) SECONDS INR APTT (21-34) SECONDS pO2 35 (30-55) mm/Hg VBG pH 7.46 H (7.32-7.43) VBG pCO2 42 (40-60) mmHg VBG HCO3 28.4 mmol/L VBG Total CO2 31.2 H (22-28) mmol/L VBG Base Excess 5.4 H (0.0-2.0) mmol/L VBG Potassium 5.1 (3.6-5.2) mmol/L Sodium 135.0 (132-148) mmol/l Chloride 90.0 L (98-107) mmol/L Glucose 77 (65-105) mg/dl Lactate 1.9 (0.7-2.1) mmol/L Potassium (3.6-5.2) mmol/L Carbon Dioxide (22-30) mmol/L Anion Gap (10-20) BUN (7-17) mg/dL Creatinine (0.7-1.2) mg/dL Est GFR ( Amer) Est GFR (Non-Af Amer) POC Glucose (mg/dL) (65-110) mg/dL Random Glucose (65-105) mg/dL Hemoglobin A1c (4.2-6.5) % Calcium (8.6-10.4) mg/dl Phosphorus (2.5-4.5) mg/dL Magnesium (1.6-2.3) mg/dL Total Bilirubin (0.2-1.3) mg/dL AST (14-36) U/L ALT (9-52) U/L Alkaline Phosphatase (38-126) U/L Total Creatine Kinase (30-135) U/L CK-MB (Mass) (0.0-3.38) ng/mL Troponin I (0.00-0.120) ng/mL Troponin I, Quant (0.00-0.120) ng/mL Total Protein (6.3-8.3) g/dL Albumin (3.5-5.0) g/dL Globulin (2.2-3.9) gm/dL Albumin/Globulin Ratio (1.0-2.1) Triglycerides (0-149) mg/dL Cholesterol (0-199) mg/dL LDL Cholesterol Direct (0-129) mg/dL HDL Cholesterol (30-70) mg/dL Venous Blood Potassium 5.1 (3.6-5.2) mmol/L Urine Color Erin (YELLOW) Urine Clarity Hazy (Clear) Urine pH 5.0 (5.0-8.0) Ur Specific [place] 1.019 (1.003-1.030) Urine Protein Negative (NEGATIVE) mg/dL Urine Glucose (UA) Normal (Normal) mg/dL Urine Ketones Trace (NEGATIVE) mg/dL Urine Blood Negative (NEGATIVE) Urine Nitrate Negative (NEGATIVE) Urine Bilirubin Negative (NEGATIVE) Urine Urobilinogen Normal (0.2-1.0) mg/dL Ur Leukocyte Esterase Neg (Negative) Ana/uL Urine WBC (Auto) 1 (0-5) /hpf Urine RBC (Auto) < 1 (0-3) /hpf Ur Transition Epith Cell < 1 (0-3) /hpf Urine Bacteria Rare (<OCC) Hyaline Casts 3-5 H (0-2) /lpf Blood Type Antibody Screen Antibody Identification 12/02/16 12/02/16 12/02/16 Range/Units 16:40 16:15 16:08 WBC (4.8-10.8) K/uL RBC (3.80-5.20) Mil/uL Hgb (11.0-16.0) g/dL Hct (34.0-47.0) % MCV (81.0-99.0) fL MCH (27.0-31.0) pg MCHC (33.0-37.0) g/dL RDW (11.5-14.5) % Plt Count (130-400) K/uL MPV (7.2-11.7) fL Neut % (Auto) (50.0-75.0) % Lymph % (Auto) (20.0-40.0) % Whitley % (Auto) (0.0-10.0) % Eos % (Auto) (0.0-4.0) % Baso % (Auto) (0.0-2.0) % Neut # (1.8-7.0) K/uL Lymph # (1.0-4.3) K/uL Whitley # (0.0-0.8) K/uL Eos # (0.0-0.7) K/uL Baso # (0.0-0.2) K/uL Total Counted Neutrophils % (Manual) (50-75) % Band Neutrophils % (0-2) % Lymphocytes % (Manual) (20-40) % Reactive Lymphs % Monocytes % (Manual) (0-10) % Eosinophils % (Manual) Basophils % (Manual) Metamyelocytes % (0-0) % Myelocytes % (0-0) % Promyelocytes % Blast Cells % Plasma Cell % (Manual) Nucleated RBC % (0-0) % Hypersegmented Polys Smudge Cells Toxic Granulation Dohle Bodies Michael Rods Platelet Estimate (NORMAL) Plt Clumps, EDTA Large Platelets Giant Platelets RBC Morphology Polychromasia Hypochromasia (manual) Poikilocytosis (manual Basophilic Stippling Anisocytosis (manual) Microcytosis (manual) Macrocytosis (manual) Spherocytes Sickle Cells Target Cells Tear Drop Cells Ovalocytes Stomatocytes Helmet Cells Archibald[place] Bodies Risa Cells Acanthocytes (Spur) Rouleaux Schistocytes Smear Path Review PT (9.7-12.2) SECONDS INR APTT (21-34) SECONDS pO2 (30-55) mm/Hg VBG pH (7.32-7.43) VBG pCO2 (40-60) mmHg VBG HCO3 mmol/L VBG Total CO2 (22-28) mmol/L VBG Base Excess (0.0-2.0) mmol/L VBG Potassium (3.6-5.2) mmol/L Sodium 130 L (132-148) mmol/l Chloride 87 L (98-107) mmol/L Glucose (65-105) mg/dl Lactate (0.7-2.1) mmol/L Potassium 4.4 (3.6-5.2) mmol/L Carbon Dioxide 28 (22-30) mmol/L Anion Gap 19 (10-20) BUN 73 H (7-17) mg/dL Creatinine 2.3 H (0.7-1.2) mg/dL Est GFR ( Amer) 25 Est GFR (Non-Af Amer) 21 POC Glucose (mg/dL) (65-110) mg/dL Random Glucose 67 (65-105) mg/dL Hemoglobin A1c 6.8 H (4.2-6.5) % Calcium 9.2 (8.6-10.4) mg/dl Phosphorus (2.5-4.5) mg/dL Magnesium (1.6-2.3) mg/dL Total Bilirubin 1.3 (0.2-1.3) mg/dL AST 18 (14-36) U/L ALT 27 (9-52) U/L Alkaline Phosphatase 95 (38-126) U/L Total Creatine Kinase (30-135) U/L CK-MB (Mass) (0.0-3.38) ng/mL Troponin I 0.1430 H* (0.00-0.120) ng/mL Troponin I, Quant (0.00-0.120) ng/mL Total Protein 5.4 L (6.3-8.3) g/dL Albumin 3.3 L (3.5-5.0) g/dL Globulin 2.1 L (2.2-3.9) gm/dL Albumin/Globulin Ratio 1.6 (1.0-2.1) Triglycerides 188 H (0-149) mg/dL Cholesterol 152 (0-199) mg/dL LDL Cholesterol Direct 61 (0-129) mg/dL HDL Cholesterol 30 (30-70) mg/dL Venous Blood Potassium (3.6-5.2) mmol/L Urine Color (YELLOW) Urine Clarity (Clear) Urine pH (5.0-8.0) Ur Specific [place] (1.003-1.030) Urine Protein (NEGATIVE) mg/dL Urine Glucose (UA) (Normal) mg/dL Urine Ketones (NEGATIVE) mg/dL Urine Blood (NEGATIVE) Urine Nitrate (NEGATIVE) Urine Bilirubin (NEGATIVE) Urine Urobilinogen (0.2-1.0) mg/dL Ur Leukocyte Esterase (Negative) Ana/uL Urine WBC (Auto) (0-5) /hpf Urine RBC (Auto) (0-3) /hpf Ur Transition Epith Cell (0-3) /hpf Urine Bacteria (<OCC) Hyaline Casts (0-2) /lpf Blood Type B POSITIVE Antibody Screen Positive Antibody Identification Anti Jka Laboratory Results - last 24 hr 12/02/16 12/02/16 12/02/16 16:08 16:15 16:40 WBC RBC Hgb Hct MCV MCH MCHC RDW Plt Count MPV Neut % (Auto) Lymph % (Auto) [place] % (Auto) Eos % (Auto) Baso % (Auto) Neut # Lymph # [place] # Eos # Baso # Total Counted Neutrophils % (Manual) Band Neutrophils % Lymphocytes % (Manual) Reactive Lymphs % Monocytes % (Manual) Eosinophils % (Manual) Basophils % (Manual) Metamyelocytes % Myelocytes % Promyelocytes % Blast Cells % Plasma Cell % (Manual) Nucleated RBC % Hypersegmented Polys Smudge Cells Toxic Granulation Dohle Bodies Michael Rods Platelet Estimate Plt Clumps, EDTA Large Platelets Giant Platelets RBC Morphology Polychromasia Hypochromasia (manual) Poikilocytosis (manual Basophilic Stippling Anisocytosis (manual) Microcytosis (manual) Macrocytosis (manual) Spherocytes Sickle Cells Target Cells Tear Drop Cells Ovalocytes Stomatocytes Helmet Cells [place] Bodies [place] Cells Acanthocytes (Spur) Rouleaux Schistocytes Smear Path Review PT INR APTT pO2 VBG pH VBG pCO2 VBG HCO3 VBG Total CO2 VBG Base Excess VBG Potassium Sodium 130 L Chloride 87 L Glucose Lactate Potassium 4.4 Carbon Dioxide 28 Anion Gap 19 BUN 73 H Creatinine 2.3 H Est GFR ( Amer) 25 Est GFR (Non-Af Amer) 21 POC Glucose (mg/dL) Random Glucose 67 Hemoglobin A1c 6.8 H Calcium 9.2 Phosphorus Magnesium Total Bilirubin 1.3 AST 18 ALT 27 Alkaline Phosphatase 95 Total Creatine Kinase CK-MB (Mass) Troponin I 0.1430 H* Troponin I, Quant Total Protein 5.4 L Albumin 3.3 L Globulin 2.1 L Albumin/Globulin Ratio 1.6 Triglycerides 188 H Cholesterol 152 LDL Cholesterol Direct 61 HDL Cholesterol 30 Venous Blood Potassium Urine Color Urine Clarity Urine pH Ur Specific [place] Urine Protein Urine Glucose (UA) Urine Ketones Urine Blood Urine Nitrate Urine Bilirubin Urine Urobilinogen Ur Leukocyte Esterase Urine WBC (Auto) Urine RBC (Auto) Ur Transition Epith Cell Urine Bacteria Hyaline Casts Blood Type B POSITIVE Antibody Screen Positive Antibody Identification Anti Jka 12/02/16 12/02/16 12/02/16 16:40 16:50 17:00 WBC 1.0 L* RBC 3.86 Hgb 12.0 Hct 35.1 MCV 91.1 MCH 31.1 H MCHC 34.1 RDW 16.7 H Plt Count 126 L MPV 7.2 Neut % (Auto) 87.5 H Lymph % (Auto) 10.3 L Whitley % (Auto) 1.7 Eos % (Auto) 0.3 Baso % (Auto) 0.2 Neut # 0.9 L Lymph # 0.1 L Whitley # 0.0 Eos # 0.0 Baso # 0.0 Total Counted Neutrophils % (Manual) 54 Band Neutrophils % 28 H* Lymphocytes % (Manual) 9 L Reactive Lymphs % Monocytes % (Manual) 7 Eosinophils % (Manual) Basophils % (Manual) Metamyelocytes % 1 H Myelocytes % 1 H Promyelocytes % Blast Cells % Plasma Cell % (Manual) Nucleated RBC % 6 H Hypersegmented Polys Smudge Cells Toxic Granulation Present Dohle Bodies Present Michael Rods Platelet Estimate Slightly decreased L Plt Clumps, EDTA Large Platelets Giant Platelets RBC Morphology Polychromasia Hypochromasia (manual) Poikilocytosis (manual Basophilic Stippling Anisocytosis (manual) Slight Microcytosis (manual) Macrocytosis (manual) Spherocytes Sickle Cells Target Cells Tear Drop Cells Ovalocytes Stomatocytes Helmet Cells [place] Bodies Risa Cells Acanthocytes (Spur) Rouleaux Schistocytes Smear Path Review PT INR APTT pO2 35 VBG pH 7.46 H VBG pCO2 42 VBG HCO3 28.4 VBG Total CO2 31.2 H VBG Base Excess 5.4 H VBG Potassium 5.1 Sodium 135.0 Chloride 90.0 L Glucose 77 Lactate 1.9 Potassium Carbon Dioxide Anion Gap BUN Creatinine Est GFR ( Amer) Est GFR (Non-Af Amer) POC Glucose (mg/dL) Random Glucose Hemoglobin A1c Calcium Phosphorus Magnesium Total Bilirubin AST ALT Alkaline Phosphatase Total Creatine Kinase CK-MB (Mass) Troponin I Troponin I, Quant Total Protein Albumin Globulin Albumin/Globulin Ratio Triglycerides Cholesterol LDL Cholesterol Direct HDL Cholesterol Venous Blood Potassium 5.1 Urine Color Erin Urine Clarity Hazy Urine pH 5.0 Ur Specific [place] 1.019 Urine Protein Negative Urine Glucose (UA) Normal Urine Ketones Trace Urine Blood Negative Urine Nitrate Negative Urine Bilirubin Negative Urine Urobilinogen Normal Ur Leukocyte Esterase Neg Urine WBC (Auto) 1 Urine RBC (Auto) < 1 Ur Transition Epith Cell < 1 Urine Bacteria Rare Hyaline Casts 3-5 H Blood Type Antibody Screen Antibody Identification 12/02/16 12/03/16 12/03/16 17:00 02:45 05:27 WBC 0.5 L* RBC 3.17 L Hgb 9.7 L D Hct 29.8 L MCV 94.0 D MCH 30.7 MCHC 32.6 L RDW 17.0 H Plt Count 91 L D MPV 6.9 L Neut % (Auto) 92.1 H Lymph % (Auto) 6.4 L Whitley % (Auto) 0.8 Eos % (Auto) 0.6 Baso % (Auto) 0.1 Neut # 0.5 L Lymph # 0.0 L Whitley # 0.0 Eos # 0.0 Baso # 0.0 Total Counted Cancelled Neutrophils % (Manual) Cancelled Band Neutrophils % Cancelled Lymphocytes % (Manual) Cancelled Reactive Lymphs % Cancelled Monocytes % (Manual) Cancelled Eosinophils % (Manual) Cancelled Basophils % (Manual) Cancelled Metamyelocytes % Cancelled Myelocytes % Cancelled Promyelocytes % Cancelled Blast Cells % Cancelled Plasma Cell % (Manual) Cancelled Nucleated RBC % Cancelled Hypersegmented Polys Cancelled Smudge Cells Cancelled Toxic Granulation Cancelled Dohle Bodies Cancelled Michael Rods Cancelled Platelet Estimate Cancelled Plt Clumps, EDTA Cancelled Large Platelets Cancelled Giant Platelets Cancelled RBC Morphology Cancelled Polychromasia Cancelled Hypochromasia (manual) Cancelled Poikilocytosis (manual Cancelled Basophilic Stippling Cancelled Anisocytosis (manual) Cancelled Microcytosis (manual) Cancelled Macrocytosis (manual) Cancelled Spherocytes Cancelled Sickle Cells Cancelled Target Cells Cancelled Tear Drop Cells Cancelled Ovalocytes Cancelled Stomatocytes Cancelled Helmet Cells Cancelled [place] Bodies Cancelled Risa Cells Cancelled Acanthocytes (Spur) Cancelled Rouleaux Cancelled Schistocytes Cancelled Smear Path Review PT 15.8 H INR 1.4 APTT 48 H pO2 VBG pH VBG pCO2 VBG HCO3 VBG Total CO2 VBG Base Excess VBG Potassium Sodium 136 Chloride 107 D Glucose Lactate Potassium 3.7 Carbon Dioxide 21 L Anion Gap 12 BUN 52 H Creatinine 1.1 Est GFR ( Amer) 59 Est GFR (Non-Af Amer) 49 POC Glucose (mg/dL) Random Glucose 63 L Hemoglobin A1c Calcium 8.0 L Phosphorus 4.8 H Magnesium 1.7 Total Bilirubin 0.7 AST 20 ALT 32 Alkaline Phosphatase 74 Total Creatine Kinase 28 L CK-MB (Mass) 1.86 Troponin I Troponin I, Quant 0.1840 H* Total Protein 5.3 L Albumin 2.4 L D Globulin 2.8 Albumin/Globulin Ratio 0.9 L Triglycerides Cholesterol LDL Cholesterol Direct HDL Cholesterol Venous Blood Potassium Urine Color Urine Clarity Urine pH Ur Specific [place] Urine Protein Urine Glucose (UA) Urine Ketones Urine Blood Urine Nitrate Urine Bilirubin Urine Urobilinogen Ur Leukocyte Esterase Urine WBC (Auto) Urine RBC (Auto) Ur Transition Epith Cell Urine Bacteria Hyaline Casts Blood Type Antibody Screen Antibody Identification 12/03/16 12/03/16 12/03/16 10:25 11:54 14:32 WBC RBC Hgb Hct MCV MCH MCHC RDW Plt Count MPV Neut % (Auto) Lymph % (Auto) Whitley % (Auto) Eos % (Auto) Baso % (Auto) Neut # Lymph # Whitley # Eos # Baso # Total Counted Neutrophils % (Manual) Band Neutrophils % Lymphocytes % (Manual) Reactive Lymphs % Monocytes % (Manual) Eosinophils % (Manual) Basophils % (Manual) Metamyelocytes % Myelocytes % Promyelocytes % Blast Cells % Plasma Cell % (Manual) Nucleated RBC % Hypersegmented Polys Smudge Cells Toxic Granulation Dohle Bodies Michael Rods Platelet Estimate Plt Clumps, EDTA Large Platelets Giant Platelets RBC Morphology Polychromasia Hypochromasia (manual) Poikilocytosis (manual Basophilic Stippling Anisocytosis (manual) Microcytosis (manual) Macrocytosis (manual) Spherocytes Sickle Cells Target Cells Tear Drop Cells Ovalocytes Stomatocytes Helmet Cells [place] Bodies [place] Cells Acanthocytes (Spur) Rouleaux Schistocytes Smear Path Review PT INR APTT pO2 VBG pH VBG pCO2 VBG HCO3 VBG Total CO2 VBG Base Excess VBG Potassium Sodium Chloride Glucose Lactate Potassium Carbon Dioxide Anion Gap BUN Creatinine Est GFR ( Amer) Est GFR (Non-Af Amer) POC Glucose (mg/dL) 64 L 117 H Random Glucose Hemoglobin A1c Calcium Phosphorus Magnesium Total Bilirubin AST ALT Alkaline Phosphatase Total Creatine Kinase 26 L CK-MB (Mass) Troponin I Troponin I, Quant Total Protein Albumin Globulin Albumin/Globulin Ratio Triglycerides Cholesterol LDL Cholesterol Direct HDL Cholesterol Venous Blood Potassium Urine Color Urine Clarity Urine pH Ur Specific [place] Urine Protein Urine Glucose (UA) Urine Ketones Urine Blood Urine Nitrate Urine Bilirubin Urine Urobilinogen Ur Leukocyte Esterase Urine WBC (Auto) Urine RBC (Auto) Ur Transition Epith Cell Urine Bacteria Hyaline Casts Blood Type Antibody Screen Antibody Identification EKG/Cardiology Studies: Cardiology / EKG Studies 12/02/16 15:56 ELECTROCARDIOGRAM Stat Comment: ED 12 Mode Of Transportation: STRETCHER Reason For Exam: adm 12/02/16 16:08 ELECTROCARDIOGRAM Stat Comment: ED 12 Mode Of Transportation: STRETCHER Reason For Exam: adm 12/03/16 08:58 EKG [ELECTROCARDIOGRAM] Stat Comment: Mode Of Transportation: Reason For Exam: positive troponin 12/03/16 08:59 EKG [ELECTROCARDIOGRAM] Stat Comment: Mode Of Transportation: Reason For Exam: r/o acs Critical Care Progress Note - Nutrition Nutrition: Nutrition Category Date Time Status NPO Diet [DIET] Diets 12/02/16 Dinner Active Assessment/Plan - Assessment and Plan (Free Text) Plan: CCM History as noted by housestaff. Pt not verbalizing complaint in AM/ sl. confused Perrl Neck- no jvd Lungs- bilat coarse bs, few crackles Heart-rr ABd- bs+, soft, nontender Ext- no edema Labs, EKG,,[id number] A&P Severe Sepsis Gram neg Bacteremia Neutropenia PNA TERESA COPD +Trop Metastatic Breast Ca s/p Craniotomy for tumor cont IV fluid cont AB f/u blood culture ID and sensitivities maintain optimal lytes/ f/u labs Rx Neupogen sedation /analgesiia with Precedex CT chest .abd., pelvis pending- will complete when stable Famiily has decided on DNR/DNI d/w housestaff critical care time 35 min
[2016-12-03] MEDS: Meropenem 500 MG in Sodium Chloride 0.9% 100 ML IVPB SCH (15:42)
[2016-12-03 15:47] VITALS: TEMP 98.3
--- NOTE | 2016-12-03 21:58 | CP.PCM.PN ---
Subjective - Date & Time of Evaluation Date of Evaluation: 12/03/16 Time of Evaluation: 16:35 - Subjective Subjective: Hospitalist/Medical Attending Note This is my first encounter with the patient. Patient seen with her daughter, Beverly as bedside and her . Patient has five adult children Patient at this time is muttering but not making sense per the daughter. Patient not sleep last night and started on Precdex to help wtih respiratry dtress. Patient does not hvae a formal POLST, nor has a designated proxy (legally) per discussion with the daughter Beverly. However, the patient had voiced with her family members that following her neurosurgical intervention earlier this month that she does not want any invasive procedures, nor does she want to be intubated or aggresive measures. Patient's son had contacted patient's control manager-oncologist who has known for 4 years today, up to family to decide pallative care decision by the family. Discussed brielfy regarding what palliative care is to the daughter, her other siblings not at present. Our palliative nurse is away until Tuesday. Celestine reports that her mother would allow infection to be treated with antibiotics. Daughter also reports patient has had to use bipap in the past. Unable to review ROS given change in patient's alter mental status. Discussed with ICU, patient 's status updated to DNR/DNI, transfer was cancelled , patietnt started on IV antibiotics, PRrcedex for acute respiratory distress. Objective - Vital Signs/Intake and Output Vital Signs (last 24 hours): Temp Pulse Resp BP Pulse Ox 98.3 F 137 H 26 H 101/46 L 96 12/03/16 14:00 12/03/16 06:50 12/03/16 06:50 12/03/16 06:52 12/03/16 06:50 Intake and Output: 12/03/16 12/04/16 18:59 06:59 Intake Total 1971 155 Balance 1970 155 - Medications Medications: Current Medications Acetaminophen (Tylenol 650 Mg Supp) 650 mg VT Q6 PRN PRN Reason: Fever >100.4 F Last Admin: 12/03/16 12:47 Dose: 650 mg Dexamethasone (Decadron) 2 mg PO Q12 SE[facility] Last Admin: 12/03/16 12:33 Dose: Not Given Diltiazem HCl (Cardizem Cd) 180 mg PO ONCE [facility] Gabapentin (Neurontin) 300 mg PO TID [facility] Last Admin: 12/03/16 18:20 Dose: Not Given Heparin Sodium (Porcine) (Heparin) 5,000 units SC Q8 [facility] Last Admin: 12/03/16 15:46 Dose: 5,000 units Vancomycin/Sodium Chloride (Vancomycin 1 Gm/Ns 200 Ml) 1 gm in 200 mls @ 133.333 mls/hr IVPB Q24H [facility] Stop: 12/08/16 08:01 Last Admin: 12/03/16 08:52 Dose: 133.333 mls/hr Meropenem 500 mg/ Sodium (Chloride) 100 mls @ 100 mls/hr IVPB Q12H [facility] Last Admin: 12/03/16 15:42 Dose: 100 mls/hr Dexmedetomidine HCl 200 mcg/ (Sodium Chloride) 50 mls @ 2.54 mls/hr IV TITR PRN ; Protocol; 0.2 MCG/KG/HR PRN Reason: Agitation Last Titration: 12/03/16 18:00 Dose: 0.4 mcg/kg/hr, 5.09 mls/hr Pantoprazole Sodium (Protonix Inj) 40 mg IVP DAILY [facility] Last Admin: 12/03/16 12:49 Dose: 40 mg Fluticasone/Salmeterol (Advair Diskus 250/50) 1 puff INH RQ12 [facility] Last Admin: 12/03/16 20:04 Dose: Not Given - Labs Labs: 12/03/16 05:27 12/03/16 02:45 PT 15.8 SECONDS (9.7-12.2) H 12/02/16 17:00 INR 1.4 12/02/16 17:00 APTT 48 SECONDS (21-34) H 12/02/16 17:00 - Constitutional Appears: Chronically Ill - Head Exam Head Exam: NORMAL INSPECTION - ENT Exam ENT Exam: Mucous Membranes Dry - Respiratory Exam Respiratory Exam: Decreased Breath Sounds, Rhonchi, Respiratory Distress - Cardiovascular Exam Cardiovascular Exam: Tachycardia, +S1, +S2 - GI/Abdominal Exam GI & Abdominal Exam: Soft, Normal Bowel Sounds - Neurological Exam Neurological Exam: Altered - Skin Skin Exam: Dry Assessment and Plan - Assessment and Plan (Free Text) Assessment: Assessment/Plan Altered Mental Status Severe sepsis (critieria: fever, elevated white count, infection: pneumonia, gram negative aminah, pancytopenia yusra) Gram negative bactermia Neutropenic Fever 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 Patient has metastatic breast cancer to mets to bone, brain, mets, s/p chem Feb , s/p neurologic procedure 11/11/16-->per discussion after neurological procedure , patient decided against aggresive, invasive further interventions. Patient's heme-onc is aware patient's decision for DNR/DNI, was called by the patient's son.Patient does not have official health proxy nor POLST-->per discussion w daughter, "we hadnt gotten around to it" but mom had made her wishes known. Management per ICU * Patient is on IV abx, IV fluids, on Cardizem, on nasal cannula, on Precedex, s /p Granix Pending swallow eval Neutropenic precautions Pending Pallative care consult Pending echocardiogram and doppler DVT ppx
--- NOTE | 2016-12-04 00:30 | CARD ---
APPROVED REPORT EKG Measurement Heart [id number] <Conclusion> Atrial fibrillation with rapid ventricular response with premature ventricular or aberrantly conducted complexes Left axis deviation Nonspecific ST abnormality Abnormal ECG
--- NOTE | 2016-12-04 00:31 | CARD ---
APPROVED REPORT EKG Measurement Heart [id number] <Conclusion> Sinus tachycardia with premature atrial complexes with aberrant conduction Possible Left atrial enlargement Right superior axis deviation Pulmonary disease pattern Possible Inferior infarct, age undetermined Abnormal ECG
[2016-12-04] MEDS: Meropenem 500 MG in Sodium Chloride 0.9% 100 ML IVPB SCH (02:05)
[2016-12-04] MEDS ORDERED: Sodium Chloride 0.9% 1,000 ML IV ONE (02:10)
--- NOTE | 2016-12-04 03:56 | CP.PCM.PRO ---
Pronouncement of Note - Clinical Findings Physical Exam: No Response Verbal/Painful Stimuli, Absent Peripheral Pulses{ Carotid & Femoral}, Absent Heart & Breath Sounds, No Pupillary Light Reflex, No Corneal Reflex, Absence of Vital Signs - Pronouncement Time Time of Pronouncement of : 03:27 - Notifications Pronouncement Notifications: Family Notified Process Checker Notified: No - Autopsy Autopsy Requested: No - [place]: [id number] Additional Comments: Son Jorge Jett informed by me.
--- NOTE | 2016-12-04 11:19 | CP.PCM.DIS ---
Provider - Provider Date of Admission: 12/03/16 01:45 Attending physician: Cuauhtemoc Colin MD Consults: Critical Care Time Spent in preparation of Discharge (in minutes): 10 Diagnosis - Discharge Diagnosis (1) Status: Acute Comment: see discharge summary for further details (2) Breast cancer metastasized to bone Status: Acute (3) DNR (do not resuscitate) Status: Acute Comment: Decision made by family. (4) Pancytopenia Status: Acute (5) History of COPD Status: Acute (6) Pneumonia Status: Acute (7) Gram-negative bacteremia Status: Acute (8) Severe sepsis Status: Acute (9) Acute renal insufficiency Status: Acute (10) Brain surgery within last 3 months Status: Acute Comment: For brain tumor secondary to breast cancer: 11/11/16 (11) Dehydration Status: Acute (12) NSTEMI (non-ST elevated myocardial infarction) Status: Acute (13) Metastatic breast cancer Status: Chronic (14) Neutropenic fever Status: Acute Hospital Course - Lab Results Lab Results: Micro Results 12/03/16 08:30 Nose MRSA Culture (Admit) - Final MRSA NOT DETECTED 12/02/16 15:45 Blood-Venous Gram Stain - Final 12/02/16 16:00 Blood-Venous Gram Stain - Final Most Recent Lab Values WBC 0.5 K/uL (4.8-10.8) L* 12/03/16 05:27 RBC 3.17 Mil/uL (3.80-5.20) L 12/03/16 05:27 Hgb 9.7 g/dL (11.0-16.0) L D 12/03/16 05:27 Hct 29.8 % (34.0-47.0) L 12/03/16 05:27 MCV 94.0 fL (81.0-99.0) D 12/03/16 05:27 MCH 30.7 pg (27.0-31.0) 12/03/16 05:27 MCHC 32.6 g/dL (33.0-37.0) L 12/03/16 05:27 RDW 17.0 % (11.5-14.5) H 12/03/16 05:27 Plt Count 91 K/uL (130-400) L D 12/03/16 05:27 MPV 6.9 fL (7.2-11.7) L 12/03/16 05:27 Neut % (Auto) 92.1 % (50.0-75.0) H 12/03/16 05:27 Lymph % (Auto) 6.4 % (20.0-40.0) L 12/03/16 05:27 Rooks % (Auto) 0.8 % (0.0-10.0) 12/03/16 05:27 Eos % (Auto) 0.6 % (0.0-4.0) 12/03/16 05:27 Baso % (Auto) 0.1 % (0.0-2.0) 12/03/16 05:27 Neut # 0.5 K/uL (1.8-7.0) L 12/03/16 05:27 Lymph # 0.0 K/uL (1.0-4.3) L 12/03/16 05:27 Rooks # 0.0 K/uL (0.0-0.8) 12/03/16 05:27 Eos # 0.0 K/uL (0.0-0.7) 12/03/16 05:27 Baso # 0.0 K/uL (0.0-0.2) 12/03/16 05:27 Total Counted Cancelled 12/03/16 05:27 Neutrophils % (Manual) 54 % (50-75) 12/02/16 17:00 Band Neutrophils % 28 % (0-2) H* 12/02/16 17:00 Lymphocytes % (Manual) 9 % (20-40) L 12/02/16 17:00 Reactive Lymphs % Cancelled 12/03/16 05:27 Monocytes % (Manual) 7 % (0-10) 12/02/16 17:00 Eosinophils % (Manual) Cancelled 12/03/16 05:27 Basophils % (Manual) Cancelled 12/03/16 05:27 Metamyelocytes % 1 % (0-0) H 12/02/16 17:00 Myelocytes % 1 % (0-0) H 12/02/16 17:00 Promyelocytes % Cancelled 12/03/16 05:27 Blast Cells % Cancelled 12/03/16 05:27 Plasma Cell % (Manual) Cancelled 12/03/16 05:27 Nucleated RBC % 6 % (0-0) H 12/02/16 17:00 Hypersegmented Polys Cancelled 12/03/16 05:27 Smudge Cells Cancelled 12/03/16 05:27 Toxic Granulation Present 12/02/16 17:00 Dohle Bodies Present 12/02/16 17:00 Michael Rods Cancelled 12/03/16 05:27 Platelet Estimate Slightly decreased (NORMAL) L 12/02/16 17:00 Plt Clumps, EDTA Cancelled 12/03/16 05:27 Large Platelets Cancelled 12/03/16 05:27 Giant Platelets Cancelled 12/03/16 05:27 RBC Morphology Cancelled 12/03/16 05:27 Polychromasia Cancelled 12/03/16 05:27 Hypochromasia (manual) Cancelled 12/03/16 05:27 Poikilocytosis (manual Cancelled 12/03/16 05:27 Basophilic Stippling Cancelled 12/03/16 05:27 Anisocytosis (manual) Slight 12/02/16 17:00 Microcytosis (manual) Cancelled 12/03/16 05:27 Macrocytosis (manual) Cancelled 12/03/16 05:27 Spherocytes Cancelled 12/03/16 05:27 Sickle Cells Cancelled 12/03/16 05:27 Target Cells Cancelled 12/03/16 05:27 Tear Drop Cells Cancelled 12/03/16 05:27 Ovalocytes Cancelled 12/03/16 05:27 Stomatocytes Cancelled 12/03/16 05:27 Helmet Cells Cancelled 12/03/16 05:27 Archibald-Kalifornsky Bodies Cancelled 12/03/16 05:27 Waka Cells Cancelled 12/03/16 05:27 Acanthocytes (Spur) Cancelled 12/03/16 05:27 Rouleaux Cancelled 12/03/16 05:27 Schistocytes Cancelled 12/03/16 05:27 Smear Path Review 12/02/16 17:00 PT 15.8 SECONDS (9.7-12.2) H 12/02/16 17:00 INR 1.4 12/02/16 17:00 APTT 48 SECONDS (21-34) H 12/02/16 17:00 pO2 35 mm/Hg (30-55) 12/02/16 16:40 VBG pH 7.46 (7.32-7.43) H 12/02/16 16:40 VBG pCO2 42 mmHg (40-60) 12/02/16 16:40 VBG HCO3 28.4 mmol/L 12/02/16 16:40 VBG Total CO2 31.2 mmol/L (22-28) H 12/02/16 16:40 VBG Base Excess 5.4 mmol/L (0.0-2.0) H 12/02/16 16:40 VBG Potassium 5.1 mmol/L (3.6-5.2) 12/02/16 16:40 Sodium 135.0 mmol/l (132-148) 12/02/16 16:40 Chloride 90.0 mmol/L (98-107) L 12/02/16 16:40 Glucose 77 mg/dl (65-105) 12/02/16 16:40 Lactate 1.9 mmol/L (0.7-2.1) 12/02/16 16:40 Sodium 136 mmol/L (132-148) 12/03/16 02:45 Potassium 3.7 mmol/L (3.6-5.2) 12/03/16 02:45 Chloride 107 mmol/L (98-107) D 12/03/16 02:45 Carbon Dioxide 21 mmol/L (22-30) L 12/03/16 02:45 Anion Gap 12 (10-20) 12/03/16 02:45 BUN 52 mg/dL (7-17) H 12/03/16 02:45 Creatinine 1.1 mg/dL (0.7-1.2) 12/03/16 02:45 Est GFR ( Amer) 59 12/03/16 02:45 Est GFR (Non-Af Amer) 49 12/03/16 02:45 POC Glucose (mg/dL) 217 mg/dL (65-110) H 12/03/16 23:56 Random Glucose 63 mg/dL (65-105) L 12/03/16 02:45 Hemoglobin A1c 6.8 % (4.2-6.5) H 12/02/16 16:08 Calcium 8.0 mg/dl (8.6-10.4) L 12/03/16 02:45 Phosphorus 4.8 mg/dL (2.5-4.5) H 12/03/16 02:45 Magnesium 1.7 mg/dL (1.6-2.3) 12/03/16 02:45 Total Bilirubin 0.7 mg/dL (0.2-1.3) 12/03/16 02:45 AST 20 U/L (14-36) 12/03/16 02:45 ALT 32 U/L (9-52) 12/03/16 02:45 Alkaline Phosphatase 74 U/L (38-126) 12/03/16 02:45 Total Creatine Kinase 26 U/L (30-135) L 12/03/16 10:25 CK-MB (Mass) 1.86 ng/mL (0.0-3.38) 12/03/16 02:45 Troponin I 0.1430 ng/mL (0.00-0.120) H* 12/02/16 16:40 Troponin I, Quant 0.1840 ng/mL (0.00-0.120) H* 12/03/16 02:45 Total Protein 5.3 g/dL (6.3-8.3) L 12/03/16 02:45 Albumin 2.4 g/dL (3.5-5.0) L D 12/03/16 02:45 Globulin 2.8 gm/dL (2.2-3.9) 12/03/16 02:45 Albumin/Globulin Ratio 0.9 (1.0-2.1) L 12/03/16 02:45 Triglycerides 188 mg/dL (0-149) H 12/02/16 16:40 Cholesterol 152 mg/dL (0-199) 12/02/16 16:40 LDL Cholesterol Direct 61 mg/dL (0-129) 12/02/16 16:40 HDL Cholesterol 30 mg/dL (30-70) 12/02/16 16:40 Venous Blood Potassium 5.1 mmol/L (3.6-5.2) 12/02/16 16:40 Urine Color Erin (YELLOW) 12/02/16 16:50 Urine Clarity Hazy (Clear) 12/02/16 16:50 Urine pH 5.0 (5.0-8.0) 12/02/16 16:50 Ur Specific [place] 1.019 (1.003-1.030) 12/02/16 16:50 Urine Protein Negative mg/dL (NEGATIVE) 12/02/16 16:50 Urine Glucose (UA) Normal mg/dL (Normal) 12/02/16 16:50 Urine Ketones Trace mg/dL (NEGATIVE) 12/02/16 16:50 Urine Blood Negative (NEGATIVE) 12/02/16 16:50 Urine Nitrate Negative (NEGATIVE) 12/02/16 16:50 Urine Bilirubin Negative (NEGATIVE) 12/02/16 16:50 Urine Urobilinogen Normal mg/dL (0.2-1.0) 12/02/16 16:50 Ur Leukocyte Esterase Neg Ana/uL (Negative) 12/02/16 16:50 Urine WBC (Auto) 1 /hpf (0-5) 12/02/16 16:50 Urine RBC (Auto) < 1 /hpf (0-3) 12/02/16 16:50 Ur Transition Epith Cell < 1 /hpf (0-3) 12/02/16 16:50 Urine Bacteria Rare (<OCC) 12/02/16 16:50 Hyaline Casts 3-5 /lpf (0-2) H 12/02/16 16:50 Blood Type B POSITIVE 12/02/16 16:15 Antibody Screen Positive 12/02/16 16:15 Antibody Identification Anti Jka 12/02/16 16:15 - Hospital Course Hospital Course: Per H&P, "HPI: 71 year old female with PMHx of metastatic breast cancer, COPD, and s/p neurosurgery to remove brain tumor, presents to the ED with altered mental status as per H&P provided by ER physician. Upon examination, patient's only complain is lower back pain due to laying down all day. Patient was unaware why she was brought to the ED. When asked, patient stated she had shortness of breath but states she has COPD and this is not new. Patient denies chest pain, nausea, or vomiting. A complete review of systems could not be completed due to patients change in mental status. PMD: unknown due to patients change in mental status Past Medical History: COPD, Breast Cancer with metastasis to bone, Brain tumor Past Surgical History: B/L mastectomy (2013) , Neurosurgery 11/11/2016 @ [facility] Allergies: NKDA Medications: Unknown due to patients change in mental status Social History: Patient lives with her . Other information unobtainable. " Patient with history of breast cancer s/p mastectomy and recurrence to bone and brain s/p neurologic intervention for brain tumor earlier this month, came following mental status changes and neutropenic fever. Patient admitted and critical care consult and patient brought to the ICU. Patient initially to be transferred to [facility] where her primary heme-onc and neurosurgeon are. However, patient's mental status deteriorated. Family decided for DNI/DNR and transferred was cancelled. Patient's heme-onc informed by family who was aware given mental status changes change. Patient given intravenous antibiotic therapy and intravenous fluids for severe sepsis pneumonia and gram negative bacteremia. Further details regarding clinical course can be reviewed via EMR. Code status: DNR/DNI Patient's pronounced on 3:27AM on 12/04/16 by ICU. Family informed by the ICU. EDRS created and certified. Please refer to physical exam in the pronouncement note. - Date & Time of H&P Date of H&P: 12/03/16 Time of H&P: 02:02 Discharge Plan - Follow Up Plan Condition: Disposition: WITH WITHOUT AUTOPSY
--- NOTE | 2016-12-04 21:18 | CARD ---
APPROVED REPORT EXAM: Two-dimensional and M-mode echocardiogram with Doppler and color Doppler. Other Information Quality : GoodRhythm : Atrial Fibrillation INDICATION Pleural Effusion Non STEMI Pneumonia / Hx Breast Cancer 2D DIMENSIONS IVSd0.8 (0.7-1.1cm)LVDd4.0 (3.9-5.9cm) PWd1.0 (0.7-1.1cm)LVDs2.7 (2.5-4.0cm) FS (%) 32.8 %LVEF (%)61.9 (>50%) M-Mode DIMENSIONS Left Atrium (MM)4.65 (2.5-4.0cm)Aortic Root3.03 (2.2-3.7cm) Aortic Cusp Exc.2.34 (1.5-2.0cm) Mitral Valve E/A ratio0.0 TDI E/Lateral E'0.0E/Medial E'0.0 Tricuspid Valve TR Peak [id number]/sTR Peak Gr.[id number] LEFT VENTRICLE The left ventricle is normal size. There is normal left ventricular wall thickness. Left ventricle systolic function is normal. The Ejection Fraction is 60-65%. There is normal LV segmental wall motion. No left ventricle thrombus noted on this study. RIGHT VENTRICLE The right ventricle is normal size. There is normal right ventricular wall thickness. The right ventricular systolic function is normal. ATRIA The left atrium size is normal. The right atrium size is normal. The interatrial septum is intact with no evidence for an atrial septal defect. AORTIC VALVE The aortic valve is normal in structure. No aortic regurgitation is present. There is no aortic valvular stenosis. There is no aortic valvular vegetation. MITRAL VALVE The mitral valve is normal in structure. There is no evidence of mitral valve prolapse. There is no mitral valve stenosis. Mitral regurgitation is mild. TRICUSPID VALVE The tricuspid valve is normal in structure. There is moderate tricuspid regurgitation. Right ventricular systolic pressure is estimated at 50-60 mmHg. There is moderate pulmonary hypertension. PULMONIC VALVE The pulmonic valve is not well visualized. There is mild pulmonic valvular regurgitation. GREAT VESSELS The aortic root is normal in size. PERICARDIAL EFFUSION There is no significant pericardial effusion. <Conclusion> Left ventricle systolic function is normal. The Ejection Fraction is 60-65%. No aortic regurgitation is present. Mitral regurgitation is mild. There is moderate tricuspid regurgitation. There is moderate pulmonary hypertension. There is mild pulmonic valvular regurgitation.
--- NOTE | 2016-12-06 14:27 | VASCLAB ---
PROCEDURE: Lower Extremity Venous Duplex Exam. HISTORY: NSTEMI PRIORS: None. TECHNIQUE: Bilateral common femoral, femoral, popliteal and posterior tibial, peroneal and great saphenous veins were evaluated. Flow was assessed with color Doppler, compressibility, assessment of phasic flow and augmentation response. Report prepared by Meet Reese, DEEPTHI, RVT FINDINGS: RIGHT: 1. Common Femoral Vein: 1.1. Compressibility - Fully compressible: Thrombus - None : Flow - Phasic: Augmentation -Normal: Reflux - None. 2. Femoral Vein: 2.1. Compressibility - Fully compressible: Thrombus - None : Flow - Phasic: Augmentation -Normal: Reflux - None. 3. Popliteal Vein: 3.1. Compressibility - Fully compressible: Thrombus - None : Flow - Phasic: Augmentation -Normal: Reflux - None. 4. Posterior Tibial Vein: 4.1. Compressibility - Fully compressible: Thrombus - None: Flow - Phasic: Augmentation -Normal: Reflux - None. 5. Peroneal Vein: 5.1. Compressibility - Fully compressible: Thrombus - None: Flow - Phasic: Augmentation -Normal: Reflux - None. 6. Great Saphenous Vein: 6.1. Compressibility - Fully compressible: Thrombus - None: Flow - Phasic: Augmentation - Normal: Reflux - None. LEFT: 1. Common Femoral Vein: 1.1. Compressibility - Fully compressible: Thrombus - None: Flow - Phasic: Augmentation -Normal: Reflux - None. 2. Femoral Vein: 2.1. Compressibility - Fully compressible: Thrombus - None: Flow - Phasic: Augmentation -Normal: Reflux - None. 3. Popliteal Vein: 3.1. Compressibility - Fully compressible: Thrombus - None : Flow - Phasic: Augmentation -Normal: Reflux - None. 4. Posterior Tibial Vein: 4.1. Compressibility - Fully compressible: Thrombus - None: Flow - Phasic: Augmentation -Normal: Reflux - None. 5. Peroneal Vein: 5.1. Compressibility - Fully compressible: Thrombus - None: Flow - Phasic: Augmentation -Normal: Reflux - None. 6. Great Saphenous Vein: 6.1. Compressibility - Fully compressible: Thrombus - None: Flow - Phasic: Augmentation - Normal: Reflux - None. OTHER FINDINGS: Right: None significant. Left: None significant. IMPRESSION: Right: No evidence of deep or superficial vein thrombosis of the right lower extremity. Normal valve function noted of the right side. Left: No evidence of deep or superficial vein thrombosis of the left lower extremity. Normal valve function noted of the left side.
== END 2016-12-04 03:27 | DRG 871 ==
LOC: C.ER 15:35 → C.9I 12-03 01:45
PROVIDERS: ADMIT Family Medicine; ATTEND Family Medicine
DX: A41.59 Other Gram-negative sepsis (principal); I21.4 Non-ST elevation (NSTEMI) myocardial infarction; N17.9 Acute kidney failure, unspecified; J18.9 Pneumonia, unspecified organism; C79.31 Secondary malignant neoplasm of brain; C50.912 Malignant neoplasm of unspecified site of left female breast; C79.51 Secondary malignant neoplasm of bone; J44.0 Chronic obstructive pulmonary disease with (acute) lower respiratory infection; E86.0 Dehydration; D70.8 Other neutropenia; R65.20 Severe sepsis without septic shock; H49.20 Sixth [abducent] nerve palsy, unspecified eye; R50.81 Fever presenting with conditions classified elsewhere; I48.91 Unspecified atrial fibrillation; D61.818 Other pancytopenia; K14.3 Hypertrophy of tongue papillae; Z66 Do not resuscitate; Z51.5 Encounter for palliative care; F17.210 Nicotine dependence, cigarettes, uncomplicated; Z85.42 Personal history of malignant neoplasm of other parts of uterus; Z90.710 Acquired absence of both cervix and uterus; Z90.13 Acquired absence of bilateral breasts and nipples; Z23 Encounter for immunization; Z87.01 Personal history of pneumonia (recurrent)